=== PATIENT | female | born 1945 | race Caucasian/White ===

== ENCOUNTER → 2016-05-23 | Outpatient (CLI) | payer MEDICARE ==
--- NOTE | 2016-05-24 11:57 | MM ---
Reason for exam: screening (asymptomatic). Last mammogram was performed 1 year ago. History: Patient is postmenopausal. Family history of breast cancer in mother at age 70. Benign stereotactic core biopsy of the left breast, March 02, 2001. Benign excisional biopsy of the left breast, February 25, 1998. Physical Findings: A clinical breast exam by your physician is recommended on an annual basis and results should be correlated with mammographic findings. MG 3D Screening Mammo W/Cad Bilateral CC and MLO view(s) were taken. Prior study comparison: May 14, 2015, bilateral MG screening mammo w CAD. May 05, 2014, bilateral MG screening mammo w CAD. There are scattered fibroglandular densities. No significant changes when compared with prior studies. ASSESSMENT: Negative, BI-RAD 1 RECOMMENDATION: Routine screening mammogram of both breasts in 1 year.
== END | disposition home or self-care (01) ==
LOC: RADMAMWWP 09:03
PROVIDERS: ATTEND Family Medicine
DX: Z12.31 Encounter for screening mammogram for malignant neoplasm of breast (principal)
CPT/HCPCS: 77063; G0202

== ENCOUNTER 2017-04-11 11:51 | Observation (INO) | payer MEDICARE ==
[2017-04-11] MEDS ORDERED: SODIUM CHLORIDE 0.9% 500 ML IV STA (12:36)
--- NOTE | 2017-04-11 12:38 | ED ---
General Adult HPI - General Chief complaint: Syncope Stated complaint: syncope Time Seen by Provider: 04/11/17 11:55 Source: family, EMS, RN notes reviewed Mode of arrival: EMS Limitations: no limitations - History of Present Illness Initial comments: This is a 72-year-old female presents emergency Department with a past medical history significant for diabetes. Patient comes in today because while at the store she be came very sweaty and states she continued to be profusely diaphoretic until she was almost at the hospital via EMS. Patient states she became very lightheaded at this time thought she was given a passout. Patient denies any palpitations. Patient denies any chest pain. Patient denies any shortness of breath or difficulty breathing. Patient denies any pain whatsoever. Patient denies headache patient denies numbness weakness. Patient denies any visual disturbance. Patient denies any abdominal pain patient denies nausea vomiting or diarrhea. Patient states her sugar was 250 when she woke up this morning and 313 when the paramedics doctor. Patient denies any dysuria hematuria urinary freaky. Patient denies any back pain. Patient states currently she has no symptoms at this time. - Related Data Home Medications Medication Instructions Recorded Confirmed Ascorbic Acid [Vitamin C] 500 mg PO DAILY 04/11/17 04/11/17 Aspirin 81 mg PO DAILY 04/11/17 04/11/17 Multivitamins, Thera [Multivitamin 1 tab PO DAILY 04/11/17 04/11/17 (formulary)] [facility] Fatty Acids/Fish Oil [Fish 1 cap PO DAILY 04/11/17 04/11/17 Oil 1,000 mg Softgel] Super B Complex 1 tab PO DAILY 04/11/17 04/11/17 Ubidecarenone [Co Q-10] 100 mg PO DAILY 04/11/17 04/11/17 cloNIDine 0.1 MG/24HR PATCH 1 patch TRANSDERM TH 04/11/17 04/11/17 [Catapres-TTS] glipiZIDE [Glucotrol] 10 mg PO AC-BID 04/11/17 04/11/17 Allergies Allergy/AdvReac Type Severity Reaction Status Date / Time Penicillins Allergy Anaphylaxis Verified 04/11/17 12:16 Most DIABETIC medications Allergy Unknown Uncoded 04/11/17 12:16 Review of Systems ROS Statement: Those systems with pertinent positive or pertinent negative responses have been documented in the HPI. ROS Other: All systems not noted in ROS Statement are negative. Past Medical History Past Medical History: Diabetes Mellitus History of Any Multi-Drug Resistant Organisms: None Reported Past Surgical History: Hysterectomy, Tonsillectomy Additional Past Surgical History / Comment(s): mass removed from scalp Past Psychological History: No Psychological Hx Reported Smoking Status: Never smoker Past Alcohol Use History: None Reported Past Drug Use History: None Reported General Exam - General Exam Comments Initial Comments: GENERAL: Patient is well-developed and well-nourished. Patient is nontoxic and well- hydrated and is in mild distress. ENT: Neck is soft and supple. No significant lymphadenopathy is noted. Oropharynx is clear. Moist mucous membranes. Neck has full range of motion without eliciting any pain. EYES: The sclera were anicteric and conjunctiva were pink and moist. Extraocular movements were intact and pupils were equal round and reactive to light. Eyelids were unremarkable. PULMONARY: Unlabored respirations. Good breath sounds bilaterally. No audible rales rhonchi or wheezing was noted. CARDIOVASCULAR: There is a regular rate and rhythm without any murmurs gallops or rubs. ABDOMEN: Soft and nontender with normal bowel sounds. No palpable organomegaly was noted. There is no palpable pulsatile mass. SKIN: Skin is clear with no lesions or rashes and otherwise unremarkable. NEUROLOGIC: Patient is alert and oriented x3. Cranial nerves II through XII are grossly intact. Motor and sensory are also intact. Normal speech, volume and content. Symmetrical smile. MUSCULOSKELETAL: Normal extremities with adequate strength and full range of motion. No lower extremity swelling or edema. No calf tenderness. LYMPHATICS: No significant lymphadenopathy is noted PSYCHIATRIC: Normal psychiatric evaluation. Normal interpersonal interactions appears functionally intact in deals appropriately with others. No signs of depression. No signs of anxiety. Limitations: no limitations Course Vital Signs 04/11/17 04/11/17 04/11/17 11:53 12:45 12:50 Temperature 97.4 F L Pulse Rate 97 Pulse Rate [ 86 Sitting] Pulse Rate [ 83 Standing] Pulse Rate [ 82 Supine] Respiratory 20 18 18 Rate Blood Pressure 152/80 Blood Pressure 184/92 [Sitting] Blood Pressure 170/76 [Standing] Blood Pressure 161/79 [Supine] O2 Sat by Pulse 97 97 Oximetry 04/11/17 04/11/17 13:40 14:36 Temperature Pulse Rate 86 84 Pulse Rate [ Sitting] Pulse Rate [ Standing] Pulse Rate [ Supine] Respiratory 16 16 Rate Blood Pressure 171/78 Blood Pressure [Sitting] Blood Pressure [Standing] Blood Pressure [Supine] O2 Sat by Pulse 97 98 Oximetry Medical Decision Making - Medical Decision Making EKG shows a normal sinus rhythm at 79 bpm SC interval is 158 QRS is 94 QT interval 428 QTC is 490. Patient's EKG shows no ST segment elevation or depression or T wave abnormalities are noted. Chest x-ray shows no acute abnormality. I spoke with Dr. Kehinde Shah he agreed that the patient should be admitted because of the near syncopal episode. - Lab Data Result diagrams: 04/11/17 12:11 04/11/17 12:11 Lab Results 04/11/17 04/11/17 04/11/17 Range/Units 12:11 12:11 12:11 WBC 7.2 (3.8-10.6) k/uL RBC 4.72 (3.80-5.40) m/uL Hgb 14.7 (11.4-16.0) gm/dL Hct 43.0 (34.0-46.0) % MCV 91.1 (80.0-100.0) fL MCH 31.1 (25.0-35.0) pg MCHC 34.1 (31.0-37.0) g/dL RDW 12.7 (11.5-15.5) % Plt Count 190 (150-450) k/uL Neutrophils % 70 % Lymphocytes % 19 % Monocytes % 5 % Eosinophils % 4 % Basophils % 1 % Neutrophils # 5.1 (1.3-7.7) k/uL Lymphocytes # 1.4 (1.0-4.8) k/uL Monocytes # 0.3 (0-1.0) k/uL Eosinophils # 0.3 (0-0.7) k/uL Basophils # 0.1 (0-0.2) k/uL PT (9.0-12.0) sec INR (<1.2) APTT (22.0-30.0) sec Sodium 138 (137-145) mmol/L Potassium 3.9 (3.5-5.1) mmol/L Chloride 104 (98-107) mmol/L Carbon Dioxide 23 (22-30) mmol/L Anion Gap 11 mmol/L BUN 19 H (7-17) mg/dL Creatinine 0.69 (0.52-1.04) mg/dL Est GFR (MDRD) Af Amer >60 (>60 ml/min/1.73 sqM) Est GFR (MDRD) Non-Af >60 (>60 ml/min/1.73 sqM) Glucose 263 H (74-99) mg/dL Calcium 9.5 (8.4-10.2) mg/dL Magnesium 1.9 (1.6-2.3) mg/dL Total Bilirubin 0.8 (0.2-1.3) mg/dL AST 24 (14-36) U/L ALT 41 (9-52) U/L Alkaline Phosphatase 104 (38-126) U/L Total Creatine Kinase 67 (30-135) U/L CK-MB (CK-2) 1.3 (0.0-2.4) ng/mL CK-MB (CK-2) Rel Index 1.9 Troponin I <0.012 (0.000-0.034) ng/mL Total Protein 6.1 L (6.3-8.2) g/dL Albumin 3.6 (3.5-5.0) g/dL Urine Color Urine Appearance (Clear) Urine pH (5.0-8.0) Ur Specific [place] (1.001-1.035) Urine Protein (Negative) Urine Glucose (UA) (Negative) Urine Ketones (Negative) Urine Blood (Negative) Urine Nitrite (Negative) Urine Bilirubin (Negative) Urine Urobilinogen (<2.0) mg/dL Ur Leukocyte Esterase (Negative) Urine WBC (0-5) /hpf Ur Squamous Epith Cells (0-4) /hpf Hyaline Casts (0-2) /lpf Urine Mucus (None) /hpf 04/11/17 04/11/17 Range/Units 12:11 13:05 WBC (3.8-10.6) k/uL RBC (3.80-5.40) m/uL Hgb (11.4-16.0) gm/dL Hct (34.0-46.0) % MCV (80.0-100.0) fL MCH (25.0-35.0) pg MCHC (31.0-37.0) g/dL RDW (11.5-15.5) % Plt Count (150-450) k/uL Neutrophils % % Lymphocytes % % Monocytes % % Eosinophils % % Basophils % % Neutrophils # (1.3-7.7) k/uL Lymphocytes # (1.0-4.8) k/uL Monocytes # (0-1.0) k/uL Eosinophils # (0-0.7) k/uL Basophils # (0-0.2) k/uL PT 10.0 (9.0-12.0) sec INR 1.0 (<1.2) APTT 20.6 L (22.0-30.0) sec Sodium (137-145) mmol/L Potassium (3.5-5.1) mmol/L Chloride (98-107) mmol/L Carbon Dioxide (22-30) mmol/L Anion Gap mmol/L BUN (7-17) mg/dL Creatinine (0.52-1.04) mg/dL Est GFR (MDRD) Af Amer (>60 ml/min/1.73 sqM) Est GFR (MDRD) Non-Af (>60 ml/min/1.73 sqM) Glucose (74-99) mg/dL Calcium (8.4-10.2) mg/dL Magnesium (1.6-2.3) mg/dL Total Bilirubin (0.2-1.3) mg/dL AST (14-36) U/L ALT (9-52) U/L Alkaline Phosphatase (38-126) U/L Total Creatine Kinase (30-135) U/L CK-MB (CK-2) (0.0-2.4) ng/mL CK-MB (CK-2) Rel Index Troponin I (0.000-0.034) ng/mL Total Protein (6.3-8.2) g/dL Albumin (3.5-5.0) g/dL Urine Color Yellow Urine Appearance Clear (Clear) Urine pH 5.0 (5.0-8.0) Ur Specific [place] 1.020 (1.001-1.035) Urine Protein Negative (Negative) Urine Glucose (UA) 4+ H (Negative) Urine Ketones 1+ H (Negative) Urine Blood Negative (Negative) Urine Nitrite Negative (Negative) Urine Bilirubin Negative (Negative) Urine Urobilinogen <2.0 (<2.0) mg/dL Ur Leukocyte Esterase Trace H (Negative) Urine WBC 2 (0-5) /hpf Ur Squamous Epith Cells 1 (0-4) /hpf Hyaline Casts 3 H (0-2) /lpf Urine Mucus Occasional H (None) /hpf Disposition Clinical Impression: Syncope, near Disposition: ADMITTED IP TO THIS HOSP Referrals: Kehinde Shah MD [Primary Care Provider] - 1-2 days Time of Disposition: 14:51
[2017-04-11 13:02] LABS: ALT 41 U/L (9-52); AST 24 U/L (14-36); Albumin 3.6 g/dL (3.5-5.0); Alkaline Phosphatase 104 U/L (38-126); Anion Gap 11 mmol/L; Blood Urea Nitrogen 19 mg/dL (7-17); Calcium 9.5 mg/dL (8.4-10.2); Carbon Dioxide 23 mmol/L (22-30); Chloride 104 mmol/L (98-107); Glucose 263 mg/dL (74-99); Magnesium 1.9 mg/dL (1.6-2.3); Sodium 138 mmol/L (137-145); Total Bilirubin 0.8 mg/dL (0.2-1.3); Total Protein 6.1 g/dL (6.3-8.2)
[2017-04-11 13:04] LABS: Potassium 3.9 mmol/L (3.5-5.1)
[2017-04-11 13:06] LABS: Basophils # (A) 0.1 k/uL (0-0.2); Basophils % (A) 1 %; Eosinophils # (A) 0.3 k/uL (0-0.7); Eosinophils % (A) 4 %; HGB 14.7 gm/dL (11.4-16.0); Lymphocytes # (A) 1.4 k/uL (1.0-4.8); Lymphocytes % (A) 19 %; MCH 31.1 pg (25.0-35.0); MCHC 34.1 g/dL (31.0-37.0); MCV 91.1 fL (80.0-100.0); Mean Platelet Volume 7.5; Monocytes # (A) 0.3 k/uL (0-1.0); Monocytes % (A) 5 %; Neutrophils # (A) 5.1 k/uL (1.3-7.7); Neutrophils % (A) 70 %; Platelet Count 190 k/uL (150-450); RBC 4.72 m/uL (3.80-5.40); RDW 12.7 % (11.5-15.5); WBC 7.2 k/uL (3.8-10.6)
[2017-04-11 13:15] LABS: Creatine Kinase 67 U/L (30-135)
[2017-04-11 13:17] LABS: Partial Thromboplastin Time 20.6 sec (22.0-30.0)
[2017-04-11 13:28] LABS: Creatine Kinase MB 1.3 ng/mL (0.0-2.4); Troponin I <0.012 ng/mL (0.000-0.034)
--- NOTE | 2017-04-11 13:41 | XR ---
EXAMINATION TYPE: XR chest 2V DATE OF EXAM: 04/11/2017 COMPARISON: 04/13/2014 HISTORY: Shortness of breath TECHNIQUE: Frontal and lateral views of the chest are obtained. FINDINGS: Scattered senescent parenchymal changes noted. Hyperinflation compatible with COPD. No evidence for infiltrate. No evidence for atelectasis. Heart size is stable. Mediastinal structures are stable and grossly unremarkable. No evidence for hilar prominence. Degenerative changes dorsal spine. IMPRESSION: 1. No evidence for acute pulmonary disease.
[2017-04-11 13:52] LABS: Appearance,Urine Clear (Clear); Bilirubin,Urine Negative (Negative); Blood,Urine Negative (Negative); Color,Urine Yellow; Glucose,Urine (UA) 4+ (Negative); Hyaline Casts,Urine 3 /lpf (0-2); Ketones,Urine 1+ (Negative); Leukocyte Esterase,Urine Trace (Negative); Mucus,Urine Occasional /hpf; Nitrite,Urine Negative (Negative); Protein,Urine Negative (Negative); Squamous Epithelial Cell,Urine 1 /hpf (0-4); Urobilinogen,Urine <2.0 mg/dL (<2.0); WBC,Urine 2 /hpf (0-5)
[2017-04-11] MEDS ORDERED: NITROGLYCERIN SL TABS 0.4 MG TAB SUBLINGUAL PRN (14:51)
[2017-04-11 19:12] LABS: Creatine Kinase 70 U/L (30-135)
[2017-04-11 19:25] LABS: Creatine Kinase MB 1.1 ng/mL (0.0-2.4); Troponin I <0.012 ng/mL (0.000-0.034)
[2017-04-11 21:19] LABS: Glucose,Whole Blood 293 mg/dL (75-99)
[2017-04-11] MEDS: INSULIN ASPART 100 UNIT/ML 1 ML 10 ML VIAL SQ SCH (22:41)
[2017-04-11] MEDS: glipiZIDE 10 MG TAB PO SCH (22:52)
[2017-04-12 01:16] LABS: Creatine Kinase 65 U/L (30-135)
[2017-04-12 01:46] LABS: Troponin I <0.012 ng/mL (0.000-0.034)
[2017-04-12 06:26] LABS: Glucose,Whole Blood 217 mg/dL (75-99)
[2017-04-12] MEDS: glipiZIDE 10 MG TAB PO SCH ×2 (06:38→17:13)
[2017-04-12] MEDS: INSULIN ASPART 100 UNIT/ML 1 ML 10 ML VIAL SQ SCH ×4 (06:38→21:14)
[2017-04-12] MEDS: ASCORBIC ACID 500 MG TAB PO SCH (08:18)
[2017-04-12] MEDS ORDERED: ASPIRIN 325 MG TAB PO SCH (09:00)
--- NOTE | 2017-04-12 09:57 | P.CRDCN ---
History of Present Illness Consult date: 04/12/17 Requesting physician: Kehinde Shah Consult reason: sycope Chief complaint: Syncope History of present illness: THis is a pleasant 72-year-old female with history of hypertension, diabetes, who was feeling quite well overall. She states that she had a busy morning yesterday, she went to a chiropractor appointment, stopped in at [employer] , then she went to [facility]. She states that she was standing in line for quite some time waiting for the customer ahead of her to pay when she became extremely diaphoretic, she states that she was not dizzy or lightheaded, just was not feeling well, she felt extremely hot and took her jacket off. Once it was her return to pay she states that she felt as though she was going to pass out so she sat down in the baggage area, and laid her head forward. There is apparently a nurse standing behind her in line that noted that she did his consciousness for a brief period of time. EMS was called, and patient was brought to the emergency room for further evaluation. While in the EMS, patient states that she was unable to get the words out that she wanted to say, when she finally did get her words out they were slurred. According to the patient, she did have a protein shake prior to starting her day. Blood pressure while eating the EMS 151/78 with a heart rate in the 80s, respirations 16, 98% room air O2 sat. Blood sugar 312. EKG on arrival showed a normal sinus rhythm with no acute changes. Subsequent EKG performed this morning showed a normal sinus rhythm with occasional PVC. Chest x-ray did not reveal any evidence for acute pulmonary disease. Blood pressure on arrival 152/80 with a heart rate in the 90s, 97% on room air. CBC normal. Sodium 138, potassium 3.9, BUN 19, creatinine 0.6. Troponins negative 3. Magnesium 1.9. The time of my examination this morning, patient feels well, no dizziness or lightheadedness, no diaphoresis, no chest pain palpitations or shortness of breath. Past Medical History Past Medical History: Diabetes Mellitus, Hypertension Additional Past Medical History / Comment(s): neuropathy History of Any Multi-Drug Resistant Organisms: None Reported Past Surgical History: Hysterectomy, Tonsillectomy Additional Past Surgical History / Comment(s): mass removed from scalp, vein stripping Past Anesthesia/Blood Transfusion Reactions: No Reported Reaction Past Psychological History: Anxiety Smoking Status: Never smoker Past Alcohol Use History: None Reported Past Drug Use History: None Reported - Past Family History Father Family Medical History: Coronary Artery Disease (CAD), Diabetes Mellitus Mother Family Medical History: Cancer Medications and Allergies Home Medications Medication Instructions Recorded Confirmed Type Ascorbic Acid [Vitamin C] 500 mg PO DAILY 04/11/17 04/11/17 History Aspirin 81 mg PO DAILY 04/11/17 04/11/17 History Multivitamins, Thera [Multivitamin 1 tab PO DAILY 04/11/17 04/11/17 History (formulary)] [place]-3 Fatty Acids/Fish Oil [Fish 1 cap PO DAILY 04/11/17 04/11/17 History Oil 1,000 mg Softgel] Super B Complex 1 tab PO DAILY 04/11/17 04/11/17 History Ubidecarenone [Co Q-10] 100 mg PO DAILY 04/11/17 04/11/17 History cloNIDine 0.1 MG/24HR PATCH 1 patch TRANSDERM TH 04/11/17 04/11/17 History [Catapres-TTS] glipiZIDE [Glucotrol] 10 mg PO AC-BID 04/11/17 04/11/17 History Allergies Allergy/AdvReac Type Severity Reaction Status Date / Time Penicillins Allergy Anaphylaxis Verified 04/11/17 12:16 Most DIABETIC medications Allergy Unknown Uncoded 04/11/17 12:16 Physical Exam Vitals: Vital Signs Temp Pulse Pulse Pulse Pulse Resp BP 04/12/17 04:00 97.8 F 83 18 04/11/17 23:42 97.3 F L 90 18 04/11/17 23:30 04/11/17 23:00 04/11/17 21:38 97.8 F 87 18 04/11/17 20:07 04/11/17 18:35 97.8 F 81 16 149/72 04/11/17 17:00 78 04/11/17 15:32 98.2 F 89 18 146/80 04/11/17 14:36 84 16 04/11/17 13:40 86 16 171/78 04/11/17 12:50 18 04/11/17 12:45 86 83 82 18 04/11/17 11:53 97.4 F L 97 20 152/80 BP BP BP Pulse Ox 04/12/17 04:00 145/95 97 04/11/17 23:42 154/84 98 04/11/17 23:30 161/91 04/11/17 23:00 195/99 04/11/17 21:38 159/89 98 04/11/17 20:07 99 04/11/17 18:35 99 04/11/17 17:00 99 04/11/17 15:32 98 04/11/17 14:36 98 04/11/17 13:40 97 04/11/17 12:50 04/11/17 12:45 184/92 170/76 161/79 97 04/11/17 11:53 97 Intake and Output 04/11/17 04/12/17 04/12/17 22:59 06:59 14:59 Intake Total 160 160 240 Output Total 1 Balance 159 160 240 Intake: IV 160 160 Sodium Chloride 0.9% 1000 160 mL @ 20 mL/hr IV CONTINOUS Sodium Chloride 0.9% 500 160 ml @ 999 mls/hr IV .Q31M STA Rx#:[id number] Oral 240 Output: Urine 1 Other: Weight 86.6 kg PHYSICAL EXAMINATION: HEENT: Head is atraumatic, normocephalic. Pupils equal, round. Neck is supple. There is no elevated jugular venous pressure. HEART EXAMINATION: Heart S1, S2 normal. No murmur or gallop heard. CHEST EXAMINATION: Lungs are clear to auscultation and precussion. No chest wall tenderness is noted on palpation or with deep breathing. ABDOMEN: Soft, nontender. Bowel sounds are heard. No organomegaly noted. EXTREMITIES: 2+ peripheral pulses with no evidence of peripheral edema and no calf tenderness noted. NEUROLOGIC patient is awake, alert and oriented -3. . Results 04/11/17 12:11 04/11/17 12:11 Cardiac Enzymes 04/11/17 04/11/17 04/11/17 Range/Units 12:11 12:11 18:11 AST 24 (14-36) U/L CK-MB (CK-2) 1.3 1.1 (0.0-2.4) ng/mL Troponin I <0.012 <0.012 (0.000-0.034) ng/mL 04/12/17 Range/Units 00:24 AST (14-36) U/L CK-MB (CK-2) 1.0 (0.0-2.4) ng/mL Troponin I <0.012 (0.000-0.034) ng/mL Coagulation 04/11/17 Range/Units 12:11 PT 10.0 (9.0-12.0) sec APTT 20.6 L (22.0-30.0) sec CBC 04/11/17 Range/Units 12:11 WBC 7.2 (3.8-10.6) k/uL RBC 4.72 (3.80-5.40) m/uL Hgb 14.7 (11.4-16.0) gm/dL Hct 43.0 (34.0-46.0) % Plt Count 190 (150-450) k/uL Comprehensive Metabolic Panel 04/11/17 Range/Units 12:11 Sodium 138 (137-145) mmol/L Potassium 3.9 (3.5-5.1) mmol/L Chloride 104 (98-107) mmol/L Carbon Dioxide 23 (22-30) mmol/L BUN 19 H (7-17) mg/dL Creatinine 0.69 (0.52-1.04) mg/dL Glucose 263 H (74-99) mg/dL Calcium 9.5 (8.4-10.2) mg/dL AST 24 (14-36) U/L ALT 41 (9-52) U/L Alkaline Phosphatase 104 (38-126) U/L Total Protein 6.1 L (6.3-8.2) g/dL Albumin 3.6 (3.5-5.0) g/dL Current Medications Generic Name Dose Route Start Last Admin Trade Name Freq PRN Reason Stop Dose Admin Ascorbic Acid 500 mg 04/12/17 09:00 04/12/17 08:18 Vitamin C PO 500 mg DAILY YAMILE Administration Aspirin 325 mg 04/12/17 09:00 04/12/17 08:18 Aspirin PO 325 mg DAILY YAMILE Administration Clonidine HCl 1 patch 04/13/17 09:00 Catapres-Tts 0.1mg Patch TRANSDERM TH [facility] Glipizide 10 mg 04/11/17 21:45 04/12/17 06:38 Glucotrol PO 10 mg AC-BID YAMILE Administration Insulin Aspart 0 unit 04/11/17 21:43 04/12/17 06:38 Novolog SQ 3 unit ACHS [facility] Administration Protocol Multivitamins 1 each 04/12/17 12:00 Theragran PO DAILY@1200 [facility] Nitroglycerin 0.4 mg 04/11/17 14:51 Nitrostat SUBLINGUAL Q5M PRN Chest Pain Intake and Output 04/11/17 04/12/17 04/12/17 22:59 06:59 14:59 Intake Total 160 160 240 Output Total 1 Balance 159 160 240 Intake: IV 160 160 Sodium Chloride 0.9% 1000 160 mL @ 20 mL/hr IV CONTINOUS Sodium Chloride 0.9% 500 160 ml @ 999 mls/hr IV .Q31M STA Rx#:[id number] Oral 240 Output: Urine 1 Other: Weight 86.6 kg 04/11/17 12:11 04/11/17 12:11 EKG Interpretations (text) EKG shows normal sinus rhythm with occasional PVC Assessment and Plan Plan: Assessment and plan #1 syncope, rule out cardiac causes. EKG shows normal sinus rhythm with occasional PVC. No tachycardia or bradycardia noted. #2 expressive aphasia with slurring of speech, symptoms resolved, rule out TIA #3 hypertension history, pressure this morning 144/90, pressure 195/99 last evening. #4 diabetes Plan We will obtain an echocardiogram with Doppler study. We will also check orthostatic heart rate and blood pressure every shift. Continue to monitor for any tachycardia or bradycardia arrhythmias. Check a fasting lipid profile. Consider the addition of an DELANEY inhibitor for blood pressure with history of diabetes . Further recommendations to follow. DNP note has been reviewed, I agree with a documented findings and plan of care. Patient was seen and examined.
--- NOTE | 2017-04-12 10:31 | P.PN ---
Progress Note - Text This is an addendum to the dictated cardiology consultation patient has a history of hypertension, diabetes mellitus ,she was started recently on clonidine patch and yesterday while standing for a prolonged period of time she had symptoms consistent with vasodepressor syncope. Subsequently in the EMS when her blood pressure was elevated she had a brief episode of slurred speech , she's feeling well at this time, she is active physically without any limitations or symptoms. At home her blood pressure has been in the 140 mmHg. She has no prior history of cardiac disease and no recent cardiac workup. Her physical examination shows no evidence of fluid overload she is in sinus mechanism. Her presentation is consistent with vasodepressor syncope that could have been exacerbated at the clonidine patch. Because of her history of diabetes I will stop the clonidine patch and add to her regimen lisinopril 5 mg twice a day as well as a statin because of her history of diabetes. We will obtain an echocardiogram with Doppler to evaluate her left ventricle systolic function. Her activity level will be increased, she will follow her blood pressure after discharge and depending on the trend further adjustments will be made. She may require a neurological evaluation for the transient speech disturbance. Thank you for this consult we will follow with you.
[2017-04-12] MEDS: LISINOPRIL 5 MG TAB PO SCH ×2 (11:24→21:14)
[2017-04-12] MEDS: ATORVASTATIN 40 MG TAB PO SCH (11:24)
[2017-04-12 12:04] LABS: Glucose,Whole Blood 252 mg/dL (75-99)
--- NOTE | 2017-04-12 12:06 | ECHOF ---
Referral Reason:syncope MEASUREMENTS -------- HEIGHT: 175.3 cm WEIGHT: 86.2 kg BP: 145/96 RVIDd: 3.5 cm (< 3.3) IVSd: 1.1 cm (0.6 - 1.1) LVIDd: 4.7 cm (3.9 - 5.3) LVPWd: 1.1 cm (0.6 - 1.1) IVSs: 1.4 cm LVIDs: 3.4 cm LVPWs: 1.1 cm LAESV Index (A-L): 25.37 ml/m Ao Diam: 3.1 cm (2.0 - 3.7) AV Cusp: 1.7 cm (1.5 - 2.6) LA Diam: 3.6 cm (2.7 - 3.8) MV EXCURSION: 17.007 mm (> 18.000) MV EF SLOPE: 79 mm/s (70 - 150) EPSS: 0.5 cm MV E Jaren: 0.39 m/s MV DecT: 209 ms MV A Jaren: 0.71 m/s MV E/A Ratio: 0.55 RAP: 5.00 mmHg RVSP: 10.41 mmHg FINDINGS -------- Sinus rhythm. This was a technically good study. The left ventricular size is normal. Left ventricular wall thickness is normal. Overall left vent ricular systolic function is normal with, an EF between 55 - 60 %. The right ventricle is normal in size. Normal LA size by volume 22+/-6 ml/m2. The right atrial size is normal. The aortic valve is trileaflet, and appears structurally normal. No aortic stenosis or regurgitation. Mild mitral regurgitation is present. [id number] tricuspid regurgitation present. There is no evidence of pulmonary hypertension. The right ventricular systolic pressure, as measured by Doppler, is 10.41mmHg. Trace/mild (physiologic) pulmonic regurgitation. The aortic root size is normal. Echo free space represents a pericardial fat pad. CONCLUSIONS -------- 1. The left ventricular size is normal. 2. Left ventricular wall thickness is normal. 3. Overall left ventricular systolic function is normal with, an EF between 55 - 60 %. 4. The aortic valve is trileaflet, and appears structurally normal. No aortic stenosis or regurgitati on. 5. Mild mitral regurgitation is present. 6. [id number] tricuspid regurgitation present. 7. There is no evidence of pulmonary hypertension. 8. The right ventricular systolic pressure, as measured by Doppler, is 10.41mmHg. 9. Trace/mild (physiologic) pulmonic regurgitation. 10. Echo free space represents a pericardial fat pad. HOME STAGING SPECIALIST: Erin Manley RDCS
[2017-04-12] MEDS: MULTIVITAMINS, THERA 1 EACH TAB PO SCH (12:14)
[2017-04-12 14:15] LABS: Hemoglobin A1C 10.1 % (4.0-6.0)
--- NOTE | 2017-04-12 15:16 | HP ---
HISTORY AND PHYSICAL CHIEF COMPLAINT: A 72-year-old white female with syncope. HISTORY OF PRESENT ILLNESS: A 72-year-old white female with history of diabetes, hypertension, unresponsive to outpatient medicine, as she states she is allergic to everything that has ever been given to her. Patient apparently went to a chiropractor, went to multiple stores, became extremely diaphoretic, not feeling well, possibly going to pass out. She was in the baggage area, laid her head down, brought to the hospital. She apparently may be have lost consciousness for a brief period of time. EMS came and did her workup. She had some slurred speech. Blood pressure is 150s/70s, heart rate in the 80s, respirations 16 to 18, O2 sat 98%. Sugars 312. Normal sinus rhythm. Came into the ER. Cardiology is evaluating her. Troponins have been negative on admission. PAST MEDICAL HISTORY: Diabetes mellitus, hypertension, drug resistant to multiple drugs due to possible allergic reaction, neuropathy. PAST SURGICAL HISTORY: Hysterectomy, tonsillectomy. PSYCH: History of anxiety. SOCIAL HISTORY: Never smoked. No alcohol. No illicit drugs. FAMILY HISTORY: Father with coronary artery disease, diabetes. Mother cancer. HOME MEDICATIONS: 1. Multivitamin. 2. Aspirin. 3. Vitamin C. 4. Clonidine 0.1 mg patch. 5. Glucotrol 10 mg b.i.d. ALLERGIES: PENICILLIN, MOST DIABETIC MEDICINES, MOST BLOOD PRESSURE MEDICINES. Temp is 98, respiratory rate is 16 to 18, blood pressure 140s to 150s to 170s/70s to 80s. Head is normocephalic, atraumatic. Pupils equal, round, react to light and accommodation. HEART: S1, S2. Abdomen is soft, nontender. No organomegaly. EXTREMITIES: No cyanosis, clubbing, or edema. NEUROLOGIC: Alert and orient x3. White count is 7.2, hemoglobin is 14.7, BUN is 17, creatinine 0.69. EKG sinus rhythm. ASSESSMENT: 1. Syncope, unclear etiology with Cardiology workup. 2. Aphasia, slurred speech, possible transient ischemic attack. 3. Hypertension, noncompliant. 4. Drug use with multiple medicines at home. 5. Diabetes, noncompliant. 6. Drug resistant to multiple medicines. Await Cardiology consult. Possible discharge home once they see her. MMODL / IJN: [id number] /
[2017-04-12 17:12] LABS: Glucose,Whole Blood 213 mg/dL (75-99)
[2017-04-12 21:12] LABS: Glucose,Whole Blood 180 mg/dL (75-99)
[2017-04-12] MEDS ORDERED: INSULIN ASPART 100 UNIT/ML 1 ML 10 ML VIAL SQ SCH (21:36)
[2017-04-13 06:18] LABS: Glucose,Whole Blood 223 mg/dL (75-99)
[2017-04-13 06:36] LABS: Anion Gap 8 mmol/L; Blood Urea Nitrogen 17 mg/dL (7-17); Calcium 9.2 mg/dL (8.4-10.2); Carbon Dioxide 27 mmol/L (22-30); Chloride 106 mmol/L (98-107); Glucose 253 mg/dL (74-99); Potassium 4.4 mmol/L (3.5-5.1); Sodium 141 mmol/L (137-145)
[2017-04-13] MEDS: INSULIN ASPART 100 UNIT/ML 1 ML 10 ML VIAL SQ SCH ×4 (07:02→21:50)
[2017-04-13] MEDS: glipiZIDE 10 MG TAB PO SCH ×2 (07:02→17:21)
[2017-04-13] MEDS ORDERED: cloNIDine 0.1 MG/24HR PATCH 1 PATCH PATCH TRANSDERM SCH (09:00)
[2017-04-13] MEDS ORDERED: ASPIRIN 81 MG PO SCH (09:00)
--- NOTE | 2017-04-13 09:10 | US ---
EXAMINATION TYPE: US carotid duplex BILAT DATE OF EXAM: 04/13/2017 COMPARISON: NONE CLINICAL HISTORY: 72-year-old female TIA, patient states syncope TECHNIQUE: Carotid duplex ultrasound examination. Indirect Doppler criteria was utilized. FINDINGS: No significant atherosclerotic changes seen on either side. EXAM MEASUREMENTS: RIGHT: Peak Systolic Velocity (PSV) cm/sec ----- Right CCA: 94.9 ----- Right ICA: 77.1 ----- Right ECA: 81.0 ICA/CCA ratio: 0.8 RIGHT: End Diastole cm/sec ----- Right CCA: 21.4 ----- Right ICA: 24.8 ----- Right ECA: 11.1 LEFT: Peak Systolic Velocity (PSV) cm/sec ----- Left CCA: 72.1 ----- Left ICA: 98.4 ----- Left ECA: 72.2 ICA/CCA ratio: 1.4 LEFT: End Diastole cm/sec ----- Left CCA: 14.9 ----- Left ICA: 29.3 ----- Left ECA: 8.9 VERTEBRALS (direction of flow): Right Vertebral: Antegrade Left Vertebral: Antegrade Rhythm: Normal IMPRESSION: No hemodynamically significant stenosis appreciated in either internal carotid artery. Criteria for Assigning % of Stenosis / Diameter reduction (Estimation based on the indirect measurements of the internal carotid artery velocities (ICA PSV). 1. Normal (no stenosis)=ICA PSV < 125 cm/s: ratio < 2.0: ICA EDV<40 cm/s. 2. Less than 50% stenosis=ICA PSV < 125 cm/s: ratio < 2.0: ICA EDV<40 cm/s. 3. 50 to 69% stenosis=ICA PSV of 125 to 230 cm/s: ration 2.0 ? 4.0: ICA EDV 40-100 cm/s. 4. Greater than 70% stenosis to near occlusion= ICA PSV > 230 cm/s: ratio > 4.0: ICA EDV > 100 cm/s. 5. Near occlusion= ICA PSV velocities may be low or undetectable: variable ratio and ICA EDV. 6. Total occlusion=unable to detect flow.
[2017-04-13] MEDS: LISINOPRIL 5 MG TAB PO SCH ×2 (09:20→21:50)
[2017-04-13] MEDS: ASCORBIC ACID 500 MG TAB PO SCH (09:20)
[2017-04-13] MEDS: ATORVASTATIN 40 MG TAB PO SCH (09:20)
[2017-04-13] MEDS: MULTIVITAMINS, THERA 1 EACH TAB PO SCH (09:20)
--- NOTE | 2017-04-13 10:04 | CT ---
EXAMINATION TYPE: CT brain wo con DATE OF EXAM: 04/13/2017 COMPARISON: NONE HISTORY: Near syncope CT DLP: 1054.[address] of the brain was performed. The ventricles, basal cisterns and sulci overlying the cerebral convexities demonstrate mild enlargem ent. There is no evidence for intracranial hemorrhage or sulcal effacement. There is decreased attenuation about the periventricular white matter and deep white matter of both c erebral hemispheres, compatible with chronic small vessel ischemia. Differential diagnosis does inclu de demyelination. No mass effects are seen.No midline shift. Osseous calvarium is intact. Calcification frontal soft tissues may reflect osteoma. If symptoms persist consider MRI. IMPRESSION: 1. Age related atrophic and chronic small vessel ischemic change without acute intracranial process s een at this time.
[2017-04-13 12:12] LABS: Glucose,Whole Blood 261 mg/dL (75-99)
--- NOTE | 2017-04-13 13:37 | P.PN ---
Subjective Progress Note Date: 04/13/17 Principal diagnosis: Syncope THis is a pleasant 72-year-old female with history of hypertension, diabetes, who was feeling quite well overall. She states that she had a busy morning yesterday, she went to a chiropractor appointment, stopped in at [employer] , then she went to [facility]. She states that she was standing in line for quite some time waiting for the customer ahead of her to pay when she became extremely diaphoretic, she states that she was not dizzy or lightheaded, just was not feeling well, she felt extremely hot and took her jacket off. Once it was her return to pay she states that she felt as though she was going to pass out so she sat down in the baggage area, and laid her head forward. There is apparently a nurse standing behind her in line that noted that she did his consciousness for a brief period of time. EMS was called, and patient was brought to the emergency room for further evaluation. While in the EMS, patient states that she was unable to get the words out that she wanted to say, when she finally did get her words out they were slurred. According to the patient, she did have a protein shake prior to starting her day. Blood pressure while eating the EMS 151/78 with a heart rate in the 80s, respirations 16, 98% room air O2 sat. Blood sugar 312. EKG on arrival showed a normal sinus rhythm with no acute changes. Subsequent EKG performed this morning showed a normal sinus rhythm with occasional PVC. Chest x-ray did not reveal any evidence for acute pulmonary disease. Blood pressure on arrival 152/80 with a heart rate in the 90s, 97% on room air. CBC normal. Sodium 138, potassium 3.9, BUN 19, creatinine 0.6. Troponins negative 3. Magnesium 1.9. The time of my examination this morning, patient feels well, no dizziness or lightheadedness, no diaphoresis, no chest pain palpitations or shortness of breath. 04/13/2017 Patient was seen and examined this morning, no episodes of dizziness or lightheadedness, no palpitations. No significant orthostatics were documented. There were no tachycardia or bradycardia arrhythmias noted on the monitor. Blood pressure this morning 138/78 with a heart rate in the 80s. Carotid Doppler study did not reveal any hemodynamically significant stenosis. CAT scan of the brain revealed age-related atrophic and chronic small vessel ischemic change without any acute cranial process. Objective - Vital Signs Vital signs: Vital Signs Temp 97.7 F 04/13/17 12:00 Pulse 82 04/13/17 12:00 Resp 18 04/13/17 12:00 BP 139/79 04/13/17 12:00 Pulse Ox 96 04/13/17 12:00 Intake & Output 04/12/17 04/13/17 04/13/17 18:59 06:59 18:59 Intake Total 600 360 240 Output Total 0 Balance 600 360 240 Weight 85.5 kg Intake: Oral 600 360 240 Output: Urine 0 Other: Voiding Method Toilet Toilet # Voids 2 2 # Bowel Movements 0 - Exam PHYSICAL EXAMINATION: HEENT: Head is atraumatic, normocephalic. Pupils equal, round. Neck is supple. There is no elevated jugular venous pressure. HEART EXAMINATION: Heart S1, S2 normal. No murmur or gallop heard. CHEST EXAMINATION: Lungs are clear to auscultation and precussion. No chest wall tenderness is noted on palpation or with deep breathing. ABDOMEN: Soft, nontender. Bowel sounds are heard. No organomegaly noted. EXTREMITIES: 2+ peripheral pulses with no evidence of peripheral edema and no calf tenderness noted. NEUROLOGIC patient is awake, alert and oriented -3. . - Labs CBC & Chem 7: 04/11/17 12:11 04/13/17 05:53 Labs: Abnormal Lab Results - Last 24 Hours (Table) 04/12/17 04/12/17 04/12/17 Range/Units 00:24 17:05 21:09 Glucose (74-99) mg/dL POC Glucose (mg/dL) 213 H 180 H (75-99) mg/dL Hemoglobin A1c 10.1 H (4.0-6.0) % 04/13/17 04/13/17 04/13/17 Range/Units 05:53 06:16 11:58 Glucose 253 H (74-99) mg/dL POC Glucose (mg/dL) 223 H 261 H (75-99) mg/dL Hemoglobin A1c (4.0-6.0) % Assessment and Plan Plan: Assessment and plan #1 syncope, rule out cardiac causes. EKG shows normal sinus rhythm with occasional PVC. No tachycardia or bradycardia noted. #2 expressive aphasia with slurring of speech, symptoms resolved, rule out TIA #3 hypertension history, pressure this morning 144/90, pressure 195/99 last evening. #4 diabetes Plan Echocardiogram with Doppler study was performed which revealed a normal left ventricular systolic function. Patient has no significant orthostasis. No arrhythmias noted on the monitor. Blood pressure is stable. From cardiology's perspective, patient may be able to be discharged home once cleared by the primary. We will make her a follow-up appointment to see Dr. Dwyer in the office in 2-3 weeks post discharge. We will continue the patient on Lipitor 40 mg daily, lisinopril 5 mg by mouth twice a day. DNP note has been reviewed, I agree with a documented findings and plan of care. Patient was seen and examined.
[2017-04-13 14:40] VITALS: BMI 27.8
[2017-04-13 17:14] LABS: Glucose,Whole Blood 173 mg/dL (75-99)
--- NOTE | 2017-04-13 17:23 | EEG ---
ELECTROENCEPHALOGRAM REPORT DATE OF SERVICE: 04/13/2017. REASON FOR TESTING: Altered mental status and transient ischemic attack. DESCRIPTION OF THE PROCEDURE: This EEG was performed using a 21 channel digital electroencephalograph, following international 10-20 system. DESCRIPTION OF THE RECORDING: From the beginning of the tracing, and with patient's eyes closed, the background rhythm was mostly consisting of 9 Hz alpha frequency in the posterior occipital leads. No obvious asymmetry is seen. Photic stimulation was performed with a minimal driving response seen. No pathological waves were elicited. Hyperventilation was not performed. The patient remains awake throughout the tracing. Occasional movement artifacts are seen. No epileptiform discharges were noticed. Her EKG lead showed a regular rate and rhythm. INTERPRETATION: This awake EEG can be considered within normal limits. There was no asymmetry seen. No epileptiform discharges were noticed. The absence of epileptiform discharges does not rule out the diagnosis of epilepsy, therefore clinical correlation is recommended. MMLE / MORRIS: [id number] /
--- NOTE | 2017-04-13 20:29 | CONS ---
CONSULTATION DATE OF CONSULTATION: 04/13/2017. CHIEF COMPLAINT: Transient ischemic attack. HISTORY OF PRESENT ILLNESS: Mrs. Levine is a pleasant 72-year-old, female who is being evaluated by the Neurology Service per the request of Dr. Kehinde Shah for a transient ischemic attack. The patient was brought into [facility] Emergency Room after she had an episode of dizziness and difficulty speaking. The patient states that she was shopping at [employer] and once she got to the valera register, she felt very dizzy and she was sweating profusely. EMS was called and the patient's blood pressure and Accu-Chek was high according to the patient but she does not recall the exact numbers. The patient remembers that she was having difficulty pronouncing the words that she wanted to say. By the time she arrived to the emergency room, her symptoms resolved. She denies any previous episodes similar to this. The patient does take aspirin 81 mg daily at home. A CT scan of the brain was done which showed no acute intracranial abnormalities. She did have generalized atrophy and small-vessel ischemic changes. Her carotid Doppler was reviewed and showed no hemodynamically significant stenosis. Her CBC and cardiac enzymes were normal. I did review her EEG from today which was also normal. Her comprehensive metabolic profile was normal except for hyperglycemia at 263. Her urinalysis showed 2 WBCs with trace leukocyte esterase. At the time of my evaluation, the patient is lying in her bed and appears to be in no acute distress. She denies any recurrence of any neurological symptoms since her admission. PAST MEDICAL HISTORY: Hypertension, diabetes, neuropathy, history of hysterectomy and tonsillectomy. SOCIAL HISTORY: She denies any tobacco or alcohol or drug use. FAMILY HISTORY: Positive for diabetes, cancer, and heart disease. HOME MEDICATIONS: Reviewed in the chart. ALLERGIES: PENICILLIN AND "MOST DIABETIC MEDICATIONS". REVIEW OF SYSTEMS: CONSTITUTIONAL: Negative. EYES: Negative. ENT: Negative. CARDIOVASCULAR: Negative. RESPIRATORY: Negative. NEUROLOGICAL: As mentioned above. GASTROINTESTINAL: Negative. GENITOURINARY: Negative. PSYCHIATRIC: Negative. MUSCULOSKELETAL: Negative. ENDOCRINE: Negative. DERMATOLOGICAL: Negative. PHYSICAL EXAM: Vital signs show a temperature of 97.7, pulse 82, respiration 18, blood pressure 139/79. GENERAL APPEARANCE: The patient is a well-developed, elderly female, who appears to be in no acute distress. HEENT: Normocephalic, atraumatic, no facial asymmetry is seen. NECK: Supple with no masses felt. CARDIOVASCULAR: Regular rate and rhythm. ABDOMEN: Nontender nondistended. Extremities showed no edema or clubbing. Neurological exam: The patient is alert, aware and oriented x3. Speech and language are normal. Strength is full in all 4 extremities. Sensory exam was normal to light touch in all 4 extremities. No tremors or seizure-like activity is seen. No facial asymmetry is noticed on cranial nerve testing. IMPRESSION: 1. Transient ischemic attack. 2. Expressive aphasia, resolved. 3. Hypertension. 4. Diabetes. RECOMMENDATION: The patient does appear to have suffered a transient ischemic attack with a transient episode of expressive aphasia and dizziness. Her CT scan of the brain and carotid Dopplers were reviewed and they showed no significant abnormalities. I will discontinue her aspirin and start her on Plavix 75 mg daily. I will order a fasting lipid panel and serum homocystine level. Her EEG was reviewed and was normal. Continue IV hydration as tolerated. Continue neuro checks. I will continue to follow with you. Further recommendations to follow. Thank you, Dr. Shah, for allowing me to participate in the care of your patient. If you have any questions, please feel free to contact me. MMODL / IJN: [id number] /
[2017-04-13 20:40] LABS: Glucose,Whole Blood 269 mg/dL (75-99)
[2017-04-13] MEDS: INSULIN NPH/REG INSULIN 70/30 300 UNIT/3 ML VIAL SQ SCH (21:50)
--- NOTE | 2017-04-13 22:52 | PN ---
PROGRESS NOTE SUBJECTIVE: [id number] white female who has had negative carotid, negative echo. Waiting for Neurology to clear her for discharge. Vital signs are stable. Blood pressure is 140s over 70s. Sugars in mid 200s. CARDIOVASCULAR: S1, S2. LUNGS: Clear. GI: Soft. HEMATOLOGY: Negative Homans. ASSESSMENT: 1. Near-syncope. 2. Hypertension acceleration. 3. Diabetes mellitus, uncontrolled. Start Humulin 70/30 ten units b.i.d. Continue lisinopril 5 mg b.i.d. Await neurology clearance. MMODL / IJN: [id number] /
[2017-04-14 05:48] LABS: Glucose,Whole Blood 190 mg/dL (75-99)
[2017-04-14] MEDS: glipiZIDE 10 MG TAB PO SCH (06:42)
[2017-04-14] MEDS: INSULIN ASPART 100 UNIT/ML 1 ML 10 ML VIAL SQ SCH ×2 (06:43→11:59)
[2017-04-14 06:45] LABS: Cholesterol 127 mg/dL (<200); HDL Cholesterol 31 mg/dL (40-60); LDL Cholesterol,Calculated 58 mg/dL (0-99); Triglycerides 192 mg/dL (<150)
[2017-04-14] MEDS: ATORVASTATIN 40 MG TAB PO SCH (08:36)
[2017-04-14] MEDS: ASCORBIC ACID 500 MG TAB PO SCH (08:36)
[2017-04-14] MEDS: MULTIVITAMINS, THERA 1 EACH TAB PO SCH (08:36)
[2017-04-14] MEDS: LISINOPRIL 5 MG TAB PO SCH (08:36)
[2017-04-14] MEDS: INSULIN NPH/REG INSULIN 70/30 300 UNIT/3 ML VIAL SQ SCH (08:36)
[2017-04-14 08:40] VITALS: RESP 18
[2017-04-14] MEDS ORDERED: CLOPIDOGREL 75 MG TAB PO SCH (09:00)
[2017-04-14 11:37] VITALS: BP 140/70; PULSE 84; TEMP 97.8
[2017-04-14 12:42] LABS: Glucose,Whole Blood 228 mg/dL (75-99)
--- NOTE | 2017-04-14 15:09 | DS ---
DISCHARGE SUMMARY DISCHARGE DIAGNOSES: 1. Hypertension acceleration. 2. Uncontrolled diabetes mellitus. 3. Transient ischemic attack. 4. Syncope. CONDITION: Stable. PROGNOSIS: Guarded. Ambulate as tolerated. HOME MEDICATIONS WILL INCLUDE: 1. Glucotrol 10 mg b.i.d. 2. Lipitor 40 mg daily. 3. Zestril 5 mg b.i.d. 4. Plavix 75 mg daily. 5. Humulin 70/30 ten units b.i.d. CONDITION: Stable. PROGNOSIS: Guarded. Ambulate as tolerated. HOSPITAL COURSE: A 72-year-old white female admitted with syncope and TIA, was started on Plavix 75 mg daily by neurologist. Cardiology started Zestril 5 mg b.i.d. for hypertension. Insulin was given 10 units b.i.d. Patient is stabilized from medical standpoint. Cleared by Neurology on discharge. She will follow up with Dr. Shah and in 1 to 2 days. MMLE / MADYN: [id number] /
== END 2017-04-14 15:53 | disposition home or self-care (01) ==
LOC: EC 11:51 → 6SEL 14:52 → INTOOBSV 14:52 → 6SEL 18:21
PROVIDERS: ADMIT Family Medicine; ATTEND Family Medicine
DX: I10 Essential (primary) hypertension (principal); R55 Syncope and collapse; G45.9 Transient cerebral ischemic attack, unspecified; E11.65 Type 2 diabetes mellitus with hyperglycemia; R47.01 Aphasia; R47.81 Slurred speech; R61 Generalized hyperhidrosis; E11.40 Type 2 diabetes mellitus with diabetic neuropathy, unspecified; F41.9 Anxiety disorder, unspecified; I49.3 Ventricular premature depolarization; Z91.19 Patient's noncompliance with other medical treatment and regimen; Z88.0 Allergy status to penicillin; Z88.8 Allergy status to other drugs, medicaments and biological substances; Z79.84 Long term (current) use of oral hypoglycemic drugs; Z79.82 Long term (current) use of aspirin; Z79.899 Other long term (current) drug therapy; Z82.49 Family history of ischemic heart disease and other diseases of the circulatory system
CPT/HCPCS: 99285; 96360 ×2; 36415; 94760 ×2; 95819; 93005; 93306; 80061; 80053; 80048; 82550 ×2; 82553 ×2; 83735; 84484 ×2; 85025; 85610; 85730; 81001; 83090; 83036; 71046; 93880; 70450; G0378 ×4

== ENCOUNTER 2017-05-06 14:14 | Inpatient (IN) | payer MEDICARE ==
[2017-05-06] MEDS ORDERED: SODIUM CHLORIDE 0.9% 500 ML IV STA (14:51)
[2017-05-06] MEDS ORDERED: ACETAMINOPHEN TAB 500 MG TAB PO STA (14:51)
--- NOTE | 2017-05-06 14:58 | ED ---
General Adult HPI - General Chief complaint: Fever Stated complaint: Back pain Time Seen by Provider: 05/06/17 14:27 Source: patient, family, RN notes reviewed, old records reviewed Mode of arrival: wheelchair Limitations: no limitations - History of Present Illness Initial comments: Chief complaint and history of present illness is a 72-year-old female here with her . The patient reports that yesterday she developed left sciatic distribution pain and then a fever today. - Related Data Home Medications Medication Instructions Recorded Confirmed glipiZIDE [Glucotrol] 10 mg PO AC-BID 04/11/17 05/06/17 Doxycycline Hyclate 100 mg PO BID 05/06/17 05/06/17 Lisinopril [Zestril] 10 mg PO BID 05/06/17 05/06/17 Tobramycin 0.3% Ophth Soln [Tobrex 2 drop RIGHT EYE Q2H 05/06/17 05/06/17 0.3% Ophth Soln] Vit C/E/Zn/Coppr/Lutein/Zeaxan 1 cap PO DAILY 05/06/17 05/06/17 [Preservision Areds 2 Softgel] Previous Rx's Medication Instructions Recorded Atorvastatin [Lipitor] 40 mg PO DAILY #30 tab 04/13/17 Clopidogrel [Plavix] 75 mg PO DAILY #30 tab 04/14/17 Insulin NPH/Reg Insulin 70/30 10 unit SQ BID vial 04/14/17 [humuLIN 70/30 VIAL] Allergies Allergy/AdvReac Type Severity Reaction Status Date / Time Penicillins Allergy Anaphylaxis Verified 05/06/17 14:33 Most DIABETIC medications Allergy Unknown Uncoded 05/06/17 14:24 Review of Systems ROS Statement: Those systems with pertinent positive or pertinent negative responses have been documented in the HPI. Review of systems. Patient denies any headache no stiff neck no sore throat. She been treated 2 times with medications including, doxycycline currently, for a stye in her right eye area. No chest pain or shortness of breath no cough. She has left sciatic area pain starting yesterday. Fever today. She has not taken any medications or fever or discomfort. No nausea no vomiting no diarrhea no neuro deficits. All systems are reviewed. Past medical problems ration did get a flu shot this year. She has had shingles in the past. She's also had a pneumonia shot. The patient had a TIA in the middle of March of last month. She has insulin-dependent diabetes mellitus, history of hypertension and peripheral neuropathy. Surgeries include total hysterectomy, tonsillectomy and several cysts removed from her back neck and scalp. All benign. Family history mother had breast cancer. Patient has ALLERGIES to penicillin. Nonsmoker nondrinker. ROS Other: All systems not noted in ROS Statement are negative. Past Medical History Past Medical History: CVA/TIA, Diabetes Mellitus, Hypertension Additional Past Medical History / Comment(s): neuropathy History of Any Multi-Drug Resistant Organisms: None Reported Past Surgical History: Hysterectomy, Tonsillectomy Additional Past Surgical History / Comment(s): mass removed from scalp, vein stripping Past Anesthesia/Blood Transfusion Reactions: No Reported Reaction Past Psychological History: Anxiety Smoking Status: Never smoker Past Alcohol Use History: None Reported Past Drug Use History: None Reported - Past Family History Father Family Medical History: Coronary Artery Disease (CAD), Diabetes Mellitus Mother Family Medical History: Cancer General Exam - General Exam Comments Initial Comments: General: The patient is awake and alert, complaining of left paralumbar pain radiating to the left buttock area. Acute onset one day ago. And fever today. Vital signs temp 101.0 pulse 120 respiratory rate 18 pulse ox 99% room air blood pressure 178/87 Eye: Pupils are equal, round and reactive to light, extra-ocular movements are intact ; there is normal conjunctiva bilaterally. No signs of icterus. Mild redness to the eyelid, right side on doxycycline. Ears, nose, mouth and throat: There are moist mucous membranes and no oral lesions. Neck: The neck is supple, there is no tenderness . No neck pain with neck flexion and extension. Cardiovascular: Tachycardic heart rate, no murmur. Respiratory: Lungs are clear to auscultation, respirations are non-labored, breath sounds are equal. No wheezes, stridor, rales, or rhonchi. Gastrointestinal: Soft, non-distended, non-tender abdomen without masses or organomegaly noted. There is no rebound or guarding present. No CVA tenderness. Bowel sounds are unremarkable. No nausea no vomiting no diarrhea. Back: Acute onset of spastic type pain to the left paralumbar region radiating to the left buttock area. No rash noted. Pain can be increased by twisting to the right or left. Musculoskeletal: Normal ROM, no tenderness, There is no pedal edema. There is no calf tenderness or swelling. History of peripheral neuropathy. Neurological: No complaints of any neuro deficits none noted. Skin: Skin is warm and dry and no rashes or lesions are noted. Early shingles discussed. Psychiatric: Cooperative, Limitations: no limitations Course Vital Signs 05/06/17 05/06/17 05/06/17 14:22 14:47 15:15 Temperature 101.0 F H Pulse Rate 120 H 132 H 111 H Respiratory 18 24 24 Rate Blood Pressure 178/87 153/72 125/66 O2 Sat by Pulse 99 97 96 Oximetry EKG Findings - EKG Comments: EKG Findings:: EKG was done and reviewed at 1457 showing sinus tachycardia rate 132 MO interval is 136 QRS 86 QT to 98 QTc 441[address] No acute ST elevation. Left axis deviation, nonspecific ST-T wave changes. Dr. Turner Medical Decision Making - Medical Decision Making Medical decision making; this is a 72-year-old female here with several complaints one of which is a recurrent stye in her right eye but also acute pain to her left buttock region. Increases with movement. Fever today of 101. No specific focus. Labs show white count 13,000 hemoglobin 15 hematocrit of 45. Potassium 3.7 with a BUN 13 creatinine 0.6 month GFR greater than 60. Glucose 259. Total bilirubin 1.4. Urine shows 4 red 26 whites there is some calcium oxalate moderate amount. Leuk esterase positive. Some bacteriuria also noted. Culture and sensitivity pending. Due to the fact the patient had flank pain fever chills elevated white count patient will receive Levaquin 750 IV piggyback for presumed pyelonephritis. CAT scan pending. Chest x-ray is done AP and lateral view and reviewed by radiologist his impression is; no acute cardiopulmonary process. As read by Dr. Jorge X-ray lumbosacral spine was done and reviewed radiologist his final impression is ;no acute fracture dislocation is seen in the lumbar spine. As read by Dr. Jorge CT of the abdomen was done without contrast because of left flank and abdominal pain. The radiologist's significant findings include kidneys and no significant abnormality is seen. There is no hydronephrosis. The ureters are nondilated. In the left hemipelvis posteriorly there are several calcifications identified which are felt to be phleboliths. No free air. Urinary bladder no significant abnormality is seen. Bowel no significant abnormality is seen. Appendix not seen. Impression no significant findings. As read by Dr. Jorge The patient is receiving Levaquin for results of left pyelonephritis. Patient be admitted to Dr. Shah. - Lab Data Result diagrams: 05/06/17 15:00 05/06/17 15:00 Lab Results 05/06/17 05/06/17 05/06/17 Range/Units 14:40 15:00 15:00 WBC 13.1 H (3.8-10.6) k/uL RBC 5.14 (3.80-5.40) m/uL Hgb 15.7 (11.4-16.0) gm/dL Hct 45.9 (34.0-46.0) % MCV 89.4 (80.0-100.0) fL MCH 30.6 (25.0-35.0) pg MCHC 34.2 (31.0-37.0) g/dL RDW 12.6 (11.5-15.5) % Plt Count 205 (150-450) k/uL Neutrophils % 83 % Lymphocytes % 10 % Monocytes % 5 % Eosinophils % 2 % Basophils % 0 % Neutrophils # 10.9 H (1.3-7.7) k/uL Lymphocytes # 1.3 (1.0-4.8) k/uL Monocytes # 0.6 (0-1.0) k/uL Eosinophils # 0.2 (0-0.7) k/uL Basophils # 0.0 (0-0.2) k/uL Sodium 138 (137-145) mmol/L Potassium 3.7 (3.5-5.1) mmol/L Chloride 104 (98-107) mmol/L Carbon Dioxide 22 (22-30) mmol/L Anion Gap 12 mmol/L BUN 13 (7-17) mg/dL Creatinine 0.61 (0.52-1.04) mg/dL Est GFR (MDRD) Af Amer >60 (>60 ml/min/1.73 sqM) Est GFR (MDRD) Non-Af >60 (>60 ml/min/1.73 sqM) Glucose 259 H (74-99) mg/dL Calcium 9.8 (8.4-10.2) mg/dL Total Bilirubin 1.4 H (0.2-1.3) mg/dL AST 16 (14-36) U/L ALT 28 (9-52) U/L Alkaline Phosphatase 118 (38-126) U/L Total Protein 6.7 (6.3-8.2) g/dL Albumin 3.9 (3.5-5.0) g/dL Urine Color Urine Appearance (Clear) Urine pH (5.0-8.0) Ur Specific [place] (1.001-1.035) Urine Protein (Negative) Urine Glucose (UA) (Negative) Urine Ketones (Negative) Urine Blood (Negative) Urine Nitrite (Negative) Urine Bilirubin (Negative) Urine Urobilinogen (<2.0) mg/dL Ur Leukocyte Esterase (Negative) Urine RBC (0-5) /hpf Urine WBC (0-5) /hpf Ur Squamous Epith Cells (0-4) /hpf Calcium Oxalate Crystal (None) /hpf Urine Bacteria (None) /hpf Hyaline Casts (0-2) /lpf Urine Mucus (None) /hpf Influenza Type A RNA Not Detected (Not Detectd) Influenza Type B (PCR) Not Detected (Not Detectd) 05/06/17 Range/Units 15:00 WBC (3.8-10.6) k/uL RBC (3.80-5.40) m/uL Hgb (11.4-16.0) gm/dL Hct (34.0-46.0) % MCV (80.0-100.0) fL MCH (25.0-35.0) pg MCHC (31.0-37.0) g/dL RDW (11.5-15.5) % Plt Count (150-450) k/uL Neutrophils % % Lymphocytes % % Monocytes % % Eosinophils % % Basophils % % Neutrophils # (1.3-7.7) k/uL Lymphocytes # (1.0-4.8) k/uL Monocytes # (0-1.0) k/uL Eosinophils # (0-0.7) k/uL Basophils # (0-0.2) k/uL Sodium (137-145) mmol/L Potassium (3.5-5.1) mmol/L Chloride (98-107) mmol/L Carbon Dioxide (22-30) mmol/L Anion Gap mmol/L BUN (7-17) mg/dL Creatinine (0.52-1.04) mg/dL Est GFR (MDRD) Af Amer (>60 ml/min/1.73 sqM) Est GFR (MDRD) Non-Af (>60 ml/min/1.73 sqM) Glucose (74-99) mg/dL Calcium (8.4-10.2) mg/dL Total Bilirubin (0.2-1.3) mg/dL AST (14-36) U/L ALT (9-52) U/L Alkaline Phosphatase (38-126) U/L Total Protein (6.3-8.2) g/dL Albumin (3.5-5.0) g/dL Urine Color Yellow Urine Appearance Cloudy H (Clear) Urine pH 5.0 (5.0-8.0) Ur Specific [place] 1.022 (1.001-1.035) Urine Protein 1+ H (Negative) Urine Glucose (UA) 3+ H (Negative) Urine Ketones 2+ H (Negative) Urine Blood Negative (Negative) Urine Nitrite Negative (Negative) Urine Bilirubin Negative (Negative) Urine Urobilinogen <2.0 (<2.0) mg/dL Ur Leukocyte Esterase Moderate H (Negative) Urine RBC 4 (0-5) /hpf Urine WBC 26 H (0-5) /hpf Ur Squamous Epith Cells 6 H (0-4) /hpf Calcium Oxalate Crystal Moderate H (None) /hpf Urine Bacteria Rare H (None) /hpf Hyaline Casts 1 (0-2) /lpf Urine Mucus Moderate H (None) /hpf Influenza Type A RNA (Not Detectd) Influenza Type B (PCR) (Not Detectd) Disposition Clinical Impression: Pyelonephritis Disposition: ADMITTED IP TO THIS [facility] Condition: Fair Referrals: Kehinde Shah MD [Primary Care Provider] - 1-2 days
[2017-05-06 15:22] LABS: Basophils % (A) 0 %; Eosinophils # (A) 0.2 k/uL (0-0.7); Eosinophils % (A) 2 %; HCT 45.9 % (34.0-46.0); HGB 15.7 gm/dL (11.4-16.0); Lymphocytes # (A) 1.3 k/uL (1.0-4.8); Lymphocytes % (A) 10 %; MCH 30.6 pg (25.0-35.0); MCHC 34.2 g/dL (31.0-37.0); MCV 89.4 fL (80.0-100.0); Mean Platelet Volume 7.1; Monocytes # (A) 0.6 k/uL (0-1.0); Monocytes % (A) 5 %; Neutrophils # (A) 10.9 k/uL (1.3-7.7); Neutrophils % (A) 83 %; Platelet Count 205 k/uL (150-450); RBC 5.14 m/uL (3.80-5.40); RDW 12.6 % (11.5-15.5); WBC 13.1 k/uL (3.8-10.6)
[2017-05-06 15:28] LABS: Appearance,Urine Cloudy (Clear); Bacteria,Urine Rare /hpf; Bilirubin,Urine Negative (Negative); Blood,Urine Negative (Negative); Calcium Oxalate Crystals,Urine Moderate /hpf; Color,Urine Yellow; Glucose,Urine (UA) 3+ (Negative); Hyaline Casts,Urine 1 /lpf (0-2); Leukocyte Esterase,Urine Moderate (Negative); Mucus,Urine Moderate /hpf; Nitrite,Urine Negative (Negative); Protein,Urine 1+ (Negative); RBC,Urine 4 /hpf (0-5); Specific Gravity,Urine 1.022 (1.001-1.035); Squamous Epithelial Cell,Urine 6 /hpf (0-4); Urobilinogen,Urine <2.0 mg/dL (<2.0); WBC,Urine 26 /hpf (0-5)
[2017-05-06 15:36] LABS: ALT 28 U/L (9-52); AST 16 U/L (14-36); Albumin 3.9 g/dL (3.5-5.0); Alkaline Phosphatase 118 U/L (38-126); Anion Gap 12 mmol/L; Blood Urea Nitrogen 13 mg/dL (7-17); Calcium 9.8 mg/dL (8.4-10.2); Carbon Dioxide 22 mmol/L (22-30); Chloride 104 mmol/L (98-107); Glucose 259 mg/dL (74-99); Potassium 3.7 mmol/L (3.5-5.1); Sodium 138 mmol/L (137-145); Total Bilirubin 1.4 mg/dL (0.2-1.3); Total Protein 6.7 g/dL (6.3-8.2)
--- NOTE | 2017-05-06 15:49 | XR ---
EXAMINATION TYPE: XR chest 2V DATE OF EXAM: 05/06/2017 COMPARISON: Femur 2017 HISTORY: Shortness of breath TECHNIQUE: Frontal and lateral views of the chest are obtained. FINDINGS: There is no focal air space opacity, pleural effusion, or pneumothorax seen. The cardiac silhouette size is within normal limits. The osseous structures are intact. IMPRESSION: No acute cardiopulmonary process.
[2017-05-06] MEDS ORDERED: LEVOFLOXACIN 750MG-D5W PMX 750 MG in DEXTROSE/WATER 1 150ML.BAG IVPB STA (15:50)
--- NOTE | 2017-05-06 15:50 | XR ---
EXAMINATION TYPE: XR lumbosacral spine min 4V DATE OF EXAM: 05/06/2017 CLINICAL HISTORY: Low back pain. TECHNIQUE: Frontal, lateral, and oblique images of the lumbar spine are obtained. COMPARISON: None FINDINGS: There are 5 lumbar type vertebral bodies identified. The lumbar spine shows satisfactory alignment without evidence of acute fracture or dislocation. Vertebral body heights and disk space he ights are within normal limits. The oblique images appear within normal limits. The overlying soft tissue appears unremarkable. IMPRESSION: No acute fracture or dislocation is seen in the lumbar spine.
[2017-05-06 15:51] LABS: Ketones,Urine 2+ (Negative)
[2017-05-06] MEDS ORDERED: HYDROmorphone 2 MG/ML 1 ML SYRINGE IVP STA (15:57)
[2017-05-06] MEDS ORDERED: METOCLOPRAMIDE 5 MG/ML 2 ML VIAL IVP STA (15:57)
--- NOTE | 2017-05-06 16:44 | CT ---
EXAMINATION TYPE: CT abdomen pelvis wo con DATE OF EXAM: 05/06/2017 COMPARISON: NONE HISTORY: Left sided flank and Abdominal pain CT DLP: 641.5 mGycm Automated exposure control for dose reduction was used. TECHNIQUE: Helical acquisition of images was performed from the lung bases through the pelvis. FINDINGS: LUNG BASES: No significant abnormality is appreciated. LIVER/GB: No significant abnormality is appreciated. PANCREAS: No significant abnormality is seen. SPLEEN: No significant abnormality is seen. ADRENALS: No significant abnormality is seen. KIDNEYS: No significant abnormality is seen. There is no hydronephrosis. The ureters are not dilated. In the left hemipelvis posteriorly there are several calcifications identified which are felt to be phleboliths. FREE AIR: No free air is visualized RETROPERITONEAL ADENOPATHY: None visualized REPRODUCTIVE ORGANS: No significant abnormality is seen URINARY BLADDER: No significant abnormality is seen. PELVIC ADENOPATHY: None visualized. OSSEOUS STRUCTURES: No significant abnormality is seen. BOWEL: No significant abnormality is seen. The appendix is not seen. IMPRESSION: NO SIGNIFICANT FINDINGS.
[2017-05-06] MEDS ORDERED: ONDANSETRON 4 MG/2 ML VIAL IVP PRN (16:51)
[2017-05-06] MEDS ORDERED: HYDROmorphone 0.5 MG/0.5 ML SYRINGE IVP PRN (16:51)
[2017-05-06] MEDS ORDERED: NALOXONE 0.4 MG/ML 1 ML VIAL IV PRN (16:51)
[2017-05-06 19:44] VITALS: BMI 27.8
[2017-05-06] MEDS: SODIUM CHLORIDE 0.9% 1,000 ML IV SCH (19:48)
[2017-05-06 20:19] LABS: Glucose,Whole Blood 278 mg/dL (75-99)
[2017-05-06] MEDS: TOBRAMYCIN 0.3% OPHTH DROPS 5 ML BTL RIGHT EYE SCH ×4 (20:27→23:33)
[2017-05-06] MEDS: glipiZIDE 5 MG TAB PO SCH (20:27)
[2017-05-06] MEDS: INSULIN NPH/REG INSULIN 70/30 300 UNIT/3 ML VIAL SQ SCH (20:27)
[2017-05-06] MEDS: DOXYCYCLINE 50 MG CAP PO SCH (20:28)
[2017-05-06] MEDS: LISINOPRIL 10 MG TAB PO SCH (20:28)
[2017-05-07] MEDS ORDERED: HYDROmorphone 2 MG TAB PO PRN (00:35)
[2017-05-07] MEDS: TOBRAMYCIN 0.3% OPHTH DROPS 5 ML BTL RIGHT EYE SCH ×11 (02:28→20:56)
[2017-05-07] MEDS: SODIUM CHLORIDE 0.9% 1,000 ML IV SCH ×2 (07:01→17:42)
[2017-05-07] MEDS: INSULIN NPH/REG INSULIN 70/30 300 UNIT/3 ML VIAL SQ SCH ×2 (07:49→20:51)
[2017-05-07] MEDS: glipiZIDE 5 MG TAB PO SCH ×2 (07:51→17:42)
[2017-05-07] MEDS: DOXYCYCLINE 50 MG CAP PO SCH ×2 (07:51→19:49)
[2017-05-07] MEDS: ACETAMINOPHEN TAB 325 MG TAB PO PRN (07:52)
[2017-05-07] MEDS: LISINOPRIL 10 MG TAB PO SCH ×2 (07:52→20:55)
[2017-05-07] MEDS: CLOPIDOGREL 75 MG TAB PO SCH (07:52)
[2017-05-07 07:58] LABS: Glucose,Whole Blood 189 mg/dL (75-99)
[2017-05-07] MEDS ORDERED: LEVOFLOXACIN 750MG-D5W PMX 750 MG in DEXTROSE/WATER 1 150ML.BAG IVPB SCH (09:00)
[2017-05-07 09:37] LABS: Glucose,Whole Blood 323 mg/dL (75-99)
[2017-05-07 11:32] LABS: Glucose,Whole Blood 300 mg/dL (75-99)
[2017-05-07] MEDS: INSULIN ASPART 100 UNIT/ML 1 ML 10 ML VIAL SQ SCH ×3 (12:56→20:51)
--- NOTE | 2017-05-07 15:27 | HP ---
HISTORY AND PHYSICAL Poonam Levine is a 72-year-old female who presented to the ED at [facility] with back pain. This was located more on the left than the right. Subsequently became central. She also had fever and chills and was feeling quite weak. She subsequently was seen in the ED and admitted for further evaluation. PAST MEDICAL HISTORY: Is positive for TIA, CVA, diabetes mellitus type 2, hypertension, history of neuropathy, history off mass removed from her scalp, vein stripping, history of anxiety. FAMILY HISTORY: Positive for breast cancer in her mother. SOCIAL HISTORY: Patient does not smoke. Does not drink alcohol. Is not exposed to any chemicals. She used to work for a [employer] company. ALLERGIC: To PENICILLIN. MEDICATIONS: Prior to admission were glipizide, PreserVision AREDS 2 soft gel, tobramycin eye drops, Zestril, insulin NPH 70/30, doxycycline, Plavix, and Lipitor. REVIEW OF SYSTEMS: Possible sty in the right eye. PHYSICAL EXAMINATION: Respiratory rate is 16, pulse rate 91, temperature 98.3, blood pressure 153/73, O2 saturation on room air is 96%. HEENT reveals erythema off the right upper eyelid. No jugular venous distention. Chest is clear. Cardiovascular system reveals an S1, S2. Abdomen is soft. There is no edema. There is some flank tenderness. White count is 13.1, hemoglobin of 15.7 with 10.9 thousand neutrophils. Glucose is 239. Bilirubin is 1.4, AST is 16, ALT is 28, alkaline phosphatase 118. UA shows moderate leukocyte esterase with moderate calcium oxalate crystals. There is 1+ protein, 3+ glucose, 2+ ketones and 26 WBCs. IMPRESSION: At this time, 1. Acute pyelonephritis. 2. Uncontrolled diabetes mellitus. 3. History of transient ischemic attack. 4. Stye on the right eye. At this point in time, keep her on GI and DVT prophylaxis. Keep her blood sugar is under control. Keep her on Levaquin and have her seen by ID. Depending on how she does, further changes to her care will need to be made. MMODL / IJN: [id number] /
[2017-05-07 17:11] LABS: Glucose,Whole Blood 188 mg/dL (75-99)
[2017-05-07] MEDS ORDERED: INSULIN ASPART 100 UNIT/ML 1 ML 10 ML VIAL SQ SCH (17:30)
[2017-05-07 18:38] LABS: Hemoglobin A1C 9.8 % (4.0-6.0)
[2017-05-07 20:24] LABS: Glucose,Whole Blood 289 mg/dL (75-99)
[2017-05-07] MEDS: FAMOTIDINE 20 MG TAB PO SCH (20:42)
[2017-05-07] MEDS: HEPARIN SODIUM,PORCINE 5,000 UNIT/ML 1 ML VIAL SQ SCH (20:42)
[2017-05-07] MEDS: ERTAPENEM 1 GM in SODIUM CHLORIDE 0.9% 50 ML IVPB SCH (20:50)
[2017-05-08] MEDS: TOBRAMYCIN 0.3% OPHTH DROPS 5 ML BTL RIGHT EYE SCH ×9 (03:49→17:36)
[2017-05-08 07:17] LABS: Glucose,Whole Blood 173 mg/dL (75-99)
[2017-05-08 07:44] VITALS: RESP 16
[2017-05-08] MEDS: LISINOPRIL 10 MG TAB PO SCH (07:49)
[2017-05-08] MEDS: CLOPIDOGREL 75 MG TAB PO SCH (07:49)
[2017-05-08] MEDS: SODIUM CHLORIDE 0.9% 1,000 ML IV SCH (07:49)
[2017-05-08] MEDS: DOXYCYCLINE 50 MG CAP PO SCH (07:50)
[2017-05-08] MEDS: FAMOTIDINE 20 MG TAB PO SCH (07:50)
[2017-05-08] MEDS: ERTAPENEM 1 GM in SODIUM CHLORIDE 0.9% 50 ML IVPB SCH (07:50)
[2017-05-08] MEDS: HEPARIN SODIUM,PORCINE 5,000 UNIT/ML 1 ML VIAL SQ SCH (07:50)
[2017-05-08] MEDS: glipiZIDE 5 MG TAB PO SCH ×2 (07:51→17:34)
[2017-05-08] MEDS: INSULIN NPH/REG INSULIN 70/30 300 UNIT/3 ML VIAL SQ SCH (08:13)
[2017-05-08] MEDS: INSULIN ASPART 100 UNIT/ML 1 ML 10 ML VIAL SQ SCH ×3 (08:14→17:35)
[2017-05-08 11:42] LABS: Glucose,Whole Blood 172 mg/dL (75-99)
[2017-05-08] MEDS: ACETAMINOPHEN TAB 325 MG TAB PO PRN (14:43)
[2017-05-08 15:53] VITALS: BP 137/86; PULSE 84; TEMP 98
[2017-05-08 17:17] LABS: Glucose,Whole Blood 159 mg/dL (75-99)
--- NOTE | 2017-05-08 21:53 | P.CON ---
Consult Note - . Consult date: 05/08/17 Assessment/Plan:: This is a 72-year-old female who states she had onset of left buttocks pain on Monday. She denies any injury, fall or strain to the area. She then developed a fever on Monday and came into [facility] emergency center for evaluation. She was found have a temperature of 101 and since has been afebrile, leukocytosis of 13.1. Influenza testing was negative. Urinalysis was cloudy, leukoesterase moderate, to be BCs 26, squamous cell 6, bacteria rare, goes him oxalate moderate. Urine culture is been finalized with no growth and blood cultures showing no growth after 24 hours. Patient was started on Levaquin and then switched to ertapenem. She underwent a chest x-ray that showed no acute cardiopulmonary process. X-ray of the lumbar spine showed no acute fracture or dislocation. CAT scan of the abdomen and pelvis without contrast showed no significant finding. Regarding her pain. It is in the left buttocks and she states it initially went across her back. She denies any radiation down her leg. Patient denies having any dysuria or increased frequency at home. She has never had any back problems in the past. She describes it as knife like and if she moves slowly and is okay. If more severe when she sits on the toilet. Patient also is concerned that she has had 3 styes in her right eye since March of this year. She has been treated with 2 courses of antibiotics by Dr. Shah and most recently went to urgent care was placed on doxycycline and tobramycin ophthalmic solution. Patient was hospitalized during March for a TIA with no residual symptoms. 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 Morataya but has had no problems recently. It usually affects the back of her legs and she applies ointment which helps. Patient is concerned that she feels she has had frequent infections over the past year starting one year ago when she had shingles that affected her right eye and down her face into her neck. Patient is a diabetic2 insulin requiring with hemoglobin A1c of 9.8. She states it was recently over 10. Discussed with patient need to have tight glucose control to avoid infections and other diabetic complications. She is interested in seeing an stator connector. Patient does states that she has been admitted, her pain is improved. Patient has only taken Tylenol for pain control. Please see the consult note as dictated by COTTON PICKER Mrs Quita Tao. Patient is without evidence of UTI at this time, thus antibiotics are discontinued and patient to be discharged home for followup with endocrinology. Needs improved glucose control, since it is likely that the high glucose is responsible for the many recent infections she has been having. I agree with evaluation, assessment and plan as dictated by nurse practitioner Mrs. Qutia Tao.
--- NOTE | 2017-05-09 06:55 | PN ---
PROGRESS NOTE SUBJECTIVE: 32-year-old white female admitted with pyelonephritis. Urine culture came back negative. She is still complaining of some back pain, calcium oxalate crystals in the urine. CT scan was negative for any stones or hydronephrosis. Fever, chills, has resolved, that she came in with, she had a possible viral syndrome, hypertension acceleration, diabetes mellitus. Increase Humalog 70/30 to 12 units b.i.d. Chronic back pain. Possible renal stone with calcium oxalate urea. Continue next 24 to 48 hours. Possible discharge with no as urine culture is negative. IV has been discontinued. Possible workup for back pain as an outpatient. MMODL / IJN: [id number] /
--- NOTE | 2017-06-12 09:46 | DS ---
DISCHARGE SUMMARY DISCHARGE MEDICATIONS: 1. Glucotrol 10 mg a.c. b.i.d. 2. Lipitor 40 daily. 3. Plavix 75 daily. 4. Humulin 70/30, 10 units subcu b.i.d. 5. Tobramycin in the eye 2 drops in the right eye every 2 hours. 6. Doxycycline 100 b.i.d. 7. Lisinopril 10 mg b.i.d. CONDITION: Stable. PROGNOSIS: Guarded. Ambulate as tolerated. Follow up in the office within a week. DISCHARGE DIAGNOSES: 1. Acute pyelonephritis. 2. Uncontrolled diabetes mellitus. 3. History of transient ischemic attack. 4. Stye on the right eye. IV antibiotics were given. IV fluids were given. The patient was stabilized over the next 24 to 48 hours. Diabetic medication was switched to insulin. Insulin instructions were given to the patient. IV antibiotics were given. She was switched to oral antibiotics and insulin injections twice a day. Follow up in the office within a week. MMLE / MADYN: [id number] /
== END 2017-05-08 18:37 | disposition home or self-care (01) | DRG 690 ==
LOC: EC 14:14 → 5MS5E 16:51
PROVIDERS: ADMIT Family Medicine; ATTEND Family Medicine
DX: N10 Acute pyelonephritis (principal); E11.40 Type 2 diabetes mellitus with diabetic neuropathy, unspecified; E11.65 Type 2 diabetes mellitus with hyperglycemia; G89.29 Other chronic pain; M54.9 Dorsalgia, unspecified; F41.9 Anxiety disorder, unspecified; H00.023 Hordeolum internum right eye, unspecified eyelid; I10 Essential (primary) hypertension; Z79.4 Long term (current) use of insulin; Z79.02 Long term (current) use of antithrombotics/antiplatelets; Z79.899 Other long term (current) drug therapy; Z88.0 Allergy status to penicillin; Z88.8 Allergy status to other drugs, medicaments and biological substances; Z86.73 Personal history of transient ischemic attack (TIA), and cerebral infarction without residual deficits; Z90.710 Acquired absence of both cervix and uterus; Z82.49 Family history of ischemic heart disease and other diseases of the circulatory system
CPT/HCPCS: 36415; 71046; 72110; 74176; 80053; 81001; 83036; 85025; 87040; 87086; 87502; 93005; 96365; 96375; 99285

== ENCOUNTER → 2017-06-19 | Outpatient (CLI) | payer MEDICARE ==
--- NOTE | 2017-06-20 10:22 | MM ---
Reason for exam: screening (asymptomatic). Last mammogram was performed 1 year and 1 month ago. History: Patient is postmenopausal. Family history of breast cancer in mother at age 70. Benign stereotactic core biopsy of the left breast, March 02, 2001. Benign excisional biopsy of the left breast, February 25, 1998. Physical Findings: A clinical breast exam by your physician is recommended on an annual basis and results should be correlated with mammographic findings. MG 3D Screening Mammo W/Cad Bilateral CC and MLO view(s) were taken. Prior study comparison: May 23, 2016, bilateral MG 3d screening mammo w/cad. May 14, 2015, bilateral MG screening mammo w CAD. There are scattered fibroglandular densities. No significant changes when compared with prior studies. ASSESSMENT: Benign, BI-RAD 2 RECOMMENDATION: Routine screening mammogram of both breasts in 1 year.
== END | disposition home or self-care (01) ==
LOC: RADMAMWWP 09:18
PROVIDERS: ATTEND Family Medicine
DX: Z12.31 Encounter for screening mammogram for malignant neoplasm of breast (principal)
CPT/HCPCS: 77063; 77067

== ENCOUNTER 2018-04-16 16:12 | Observation (INO) | payer MEDICARE ==
--- NOTE | 2018-04-16 15:54 | CT ---
EXAMINATION TYPE: CT angio chest DATE OF EXAM: 04/16/2018 COMPARISON: CTA chest December 02, 2015 HISTORY: Dyspnea. CT DLP: 244.4 mGycm. Automated Exposure Control for Dose Reduction was Utilized. CONTRAST: CTA scan of the thorax is performed with IV Contrast, patient injected with 45ml mL of Isovue 370, pu lmonary embolism protocol. MIP Images are created on CT scanner and reviewed. FINDINGS: LUNGS: Dependent atelectasis is present. Mild central groundglass opacity favors mild alveolar edema. No suspicious focal consolidation is seen. No pleural effusion or pneumothorax is noted. MEDIASTINUM: There is satisfactory enhancement of the pulmonary artery and its branches, there is no CT evidence for pulmonary embolism. There are no greater than 1 cm hilar or mediastinal lymph nodes. No significant pericardial effusion is seen. Cardiomegaly is present. There is coronary artery ravinder cification which is noted marked of coronary artery disease. OTHER: There is rim calcified 1.5 cm splenic artery aneurysm axial image 118. IMPRESSION: 1. No CT evidence for acute pulmonary embolism. 2. CT findings could reflect CHF exacerbation as there is cardiomegaly with suspected mild central al veolar edema. Correlate clinically.
[2018-04-16 18:00] LABS: Basophils # (A) 0.1 k/uL (0-0.2); Basophils % (A) 1 %; Eosinophils # (A) 0.5 k/uL (0-0.7); Eosinophils % (A) 7 %; HCT 44.3 % (34.0-46.0); HGB 15.1 gm/dL (11.4-16.0); Lymphocytes # (A) 1.6 k/uL (1.0-4.8); Lymphocytes % (A) 23 %; MCH 30.9 pg (25.0-35.0); MCHC 34.1 g/dL (31.0-37.0); MCV 90.7 fL (80.0-100.0); Monocytes # (A) 0.3 k/uL (0-1.0); Monocytes % (A) 4 %; Neutrophils # (A) 4.3 k/uL (1.3-7.7); Neutrophils % (A) 62 %; Platelet Count 243 k/uL (150-450); RBC 4.88 m/uL (3.80-5.40); RDW 13.2 % (11.5-15.5); WBC 6.9 k/uL (3.8-10.6)
[2018-04-16 18:09] LABS: ALT 32 U/L (9-52); AST 19 U/L (14-36); Alkaline Phosphatase 96 U/L (38-126); Anion Gap 8 mmol/L; Blood Urea Nitrogen 19 mg/dL (7-17); Calcium 9.7 mg/dL (8.4-10.2); Carbon Dioxide 24 mmol/L (22-30); Chloride 103 mmol/L (98-107); Glucose 266 mg/dL (74-99); Magnesium 1.6 mg/dL (1.6-2.3); Potassium 4.7 mmol/L (3.5-5.1); Sodium 135 mmol/L (137-145); Total Bilirubin 0.8 mg/dL (0.2-1.3); Total Protein 6.7 g/dL (6.3-8.2)
[2018-04-16 18:16] LABS: Creatine Kinase 34 U/L (30-135)
[2018-04-16 18:19] LABS: INR 0.9 (<1.2); Prothrombin Time 9.8 sec (9.0-12.0)
[2018-04-16 18:29] LABS: Creatine Kinase MB 0.6 ng/mL (0.0-2.4); Troponin I <0.012 ng/mL (0.000-0.034)
--- NOTE | 2018-04-16 18:35 | XR ---
EXAMINATION: XR chest 2V DATE AND TIME: 04/16/2018 6:18 PM CLINICAL INDICATION: PHH; difficulty breathing TECHNIQUE: Departmental protocol COMPARISON: 05/06/2017 FINDINGS: The lungs are clear. The pleural spaces are negative. The cardiac silhouette is not enlarged. The remainder of the mediastinal silhouette is unremarkable. The skeletal structures and soft tissues are negative for acute findings. IMPRESSION: NO ACUTE PROCESS.
[2018-04-16] MEDS ORDERED: ACETAMINOPHEN TAB 325 MG TAB PO PRN (18:48)
[2018-04-16] MEDS ORDERED: NALOXONE 0.4 MG/ML 1 ML VIAL IV PRN (18:48)
[2018-04-16] MEDS ORDERED: MORPHINE SULFATE 4 MG/ML SYRINGE IV PRN (18:48)
--- NOTE | 2018-04-16 18:48 | ED ---
General Adult HPI - General Chief complaint: Shortness of Breath Time Seen by Provider: 04/16/18 17:24 Source: patient, RN notes reviewed, old records reviewed Mode of arrival: ambulatory Limitations: no limitations - History of Present Illness Initial comments: 73 old female past history diabetes presents for evaluation of abnormal outpatient CT. Patient found on CT testing to have pulmonary vascular congestion and cardiomegaly which is new. She was seen by her primary care physician earlier today with complaints of pleuritic left-sided chest pain, there was concern for pulmonary embolism. Computed tomography scan is negative for pulmonary embolism. She's had some preceding respiratory complaints including congestion, sore throat, cough, and fever. Patient has no history of heart failure, no history of arrhythmia, no history of CAD. Denies central chest pain, pain is left posterior chest. She has no pain time my evaluation. No dyspnea at rest. No lower extremity swelling. - Related Data Home Medications Medication Instructions Recorded Confirmed Lisinopril [Zestril] 10 mg PO BID 05/06/17 04/16/18 Vit C/E/Zn/Coppr/Lutein/Zeaxan 1 cap PO BID 05/06/17 04/16/18 [Preservision Areds 2 Softgel] Levofloxacin [Levaquin] 500 mg PO DAILY 04/16/18 04/16/18 Levothyroxine Sodium [Synthroid] 25 mcg PO DAILY 04/16/18 04/16/18 Multivitamins, Thera [Multivitamin 1 tab PO DAILY 04/16/18 04/16/18 (formulary)] glipiZIDE [Glucotrol] 10 mg PO DAILY 04/16/18 04/16/18 metFORMIN HCL 1,000 mg PO BID 04/16/18 04/16/18 Previous Rx's Medication Instructions Recorded Clopidogrel [Plavix] 75 mg PO DAILY #30 tab 04/14/17 Allergies Allergy/AdvReac Type Severity Reaction Status Date / Time Insulins Allergy Unknown Verified 04/16/18 17:23 Penicillins Allergy Anaphylaxis Verified 04/16/18 17:23 Most DIABETIC medications Allergy Unknown Uncoded 05/06/17 14:24 Review of Systems ROS Statement: Those systems with pertinent positive or pertinent negative responses have been documented in the HPI. ROS Other: All systems not noted in ROS Statement are negative. Past Medical History Past Medical History: CVA/TIA, Diabetes Mellitus, Hypertension Additional Past Medical History / Comment(s): TIA, diabetic neuropathy History of Any Multi-Drug Resistant Organisms: None Reported Past Surgical History: Hysterectomy, Tonsillectomy Additional Past Surgical History / Comment(s): mass removed from scalp, vein stripping, mastoid tumor removed Past Anesthesia/Blood Transfusion Reactions: No Reported Reaction Past Psychological History: Anxiety Smoking Status: Never smoker Past Alcohol Use History: None Reported Past Drug Use History: None Reported - Past Family History Father Family Medical History: Coronary Artery Disease (CAD), Diabetes Mellitus Mother Family Medical History: Cancer Additional Family Medical History / Comment(s): breast cancer General Exam Limitations: no limitations General appearance: alert, in no apparent distress Head exam: Present: atraumatic, normocephalic Eye exam: Present: normal appearance, PERRL ENT exam: Present: normal exam Neck exam: Present: normal inspection. Absent: tenderness, meningismus Respiratory exam: Present: normal lung sounds bilaterally. Absent: respiratory distress, wheezes, rales Cardiovascular Exam: Present: regular rate, normal rhythm GI/Abdominal exam: Present: soft. Absent: distended, tenderness, guarding Extremities exam: Present: normal inspection, normal capillary refill. Absent: pedal edema, calf tenderness Neurological exam: Present: alert, oriented X3, CN II-XII intact. Absent: motor sensory deficit Psychiatric exam: Present: normal affect, normal mood Skin exam: Present: warm, dry, intact. Absent: cyanosis, diaphoretic Course Vital Signs 04/16/18 16:31 Temperature 98.4 F Pulse Rate 122 H Respiratory 18 Rate Blood Pressure 154/78 O2 Sat by Pulse 97 Oximetry EKG Findings - EKG Comments: EKG Findings:: EKG: Sinus tach at a, left axis deviation, rate of [address] segment elevation or depression, CA interval 136, castration 92, QTC 463 Medical Decision Making - Medical Decision Making 73-year-old female presenting with abnormal outpatient CT. CT was reviewed, shows concern for congestive heart failure, cardiomegaly, pulmonary edema, there is no pulmonary embolism on exam. Patient has nonischemic EKG. Chest x- ray shows no acute findings. Normal CBC, normal CMP, troponin negative, BNP negative, influenza testing in the emergency Department is normal. Patient will be admitted at the recommendation of her primary care physician. Echo will be obtained. Cardiology will be placed on consult. - Lab Data Result diagrams: 04/16/18 17:39 04/16/18 17:39 Lab Results 04/16/18 04/16/18 04/16/18 Range/Units 17:39 17:39 17:39 WBC 6.9 (3.8-10.6) k/uL RBC 4.88 (3.80-5.40) m/uL Hgb 15.1 (11.4-16.0) gm/dL Hct 44.3 (34.0-46.0) % MCV 90.7 (80.0-100.0) fL MCH 30.9 (25.0-35.0) pg MCHC 34.1 (31.0-37.0) g/dL RDW 13.2 (11.5-15.5) % Plt Count 243 (150-450) k/uL Neutrophils % 62 % Lymphocytes % 23 % Monocytes % 4 % Eosinophils % 7 % Basophils % 1 % Neutrophils # 4.3 (1.3-7.7) k/uL Lymphocytes # 1.6 (1.0-4.8) k/uL Monocytes # 0.3 (0-1.0) k/uL Eosinophils # 0.5 (0-0.7) k/uL Basophils # 0.1 (0-0.2) k/uL PT (9.0-12.0) sec INR (<1.2) APTT (22.0-30.0) sec Sodium 135 L (137-145) mmol/L Potassium 4.7 (3.5-5.1) mmol/L Chloride 103 (98-107) mmol/L Carbon Dioxide 24 (22-30) mmol/L Anion Gap 8 mmol/L BUN 19 H (7-17) mg/dL Creatinine 0.67 (0.52-1.04) mg/dL Est GFR (CKD-EPI)AfAm >90 (>60 ml/min/1.73 sqM) Est GFR (CKD-EPI)NonAf 88 (>60 ml/min/1.73 sqM) Glucose 266 H (74-99) mg/dL Calcium 9.7 (8.4-10.2) mg/dL Magnesium 1.6 (1.6-2.3) mg/dL Total Bilirubin 0.8 (0.2-1.3) mg/dL AST 19 (14-36) U/L ALT 32 (9-52) U/L Alkaline Phosphatase 96 (38-126) U/L Total Creatine Kinase 34 (30-135) U/L CK-MB (CK-2) 0.6 (0.0-2.4) ng/mL CK-MB (CK-2) Rel Index 1.8 Troponin I <0.012 (0.000-0.034) ng/mL NT-Pro-B Natriuret Pep pg/mL Total Protein 6.7 (6.3-8.2) g/dL Albumin 4.0 (3.5-5.0) g/dL Influenza Type A RNA (Not Detectd) Influenza Type B (PCR) (Not Detectd) 04/16/18 04/16/18 04/16/18 Range/Units 17:39 17:39 18:05 WBC (3.8-10.6) k/uL RBC (3.80-5.40) m/uL Hgb (11.4-16.0) gm/dL Hct (34.0-46.0) % MCV (80.0-100.0) fL MCH (25.0-35.0) pg MCHC (31.0-37.0) g/dL RDW (11.5-15.5) % Plt Count (150-450) k/uL Neutrophils % % Lymphocytes % % Monocytes % % Eosinophils % % Basophils % % Neutrophils # (1.3-7.7) k/uL Lymphocytes # (1.0-4.8) k/uL Monocytes # (0-1.0) k/uL Eosinophils # (0-0.7) k/uL Basophils # (0-0.2) k/uL PT 9.8 (9.0-12.0) sec INR 0.9 (<1.2) APTT 23.0 (22.0-30.0) sec Sodium (137-145) mmol/L Potassium (3.5-5.1) mmol/L Chloride (98-107) mmol/L Carbon Dioxide (22-30) mmol/L Anion Gap mmol/L BUN (7-17) mg/dL Creatinine (0.52-1.04) mg/dL Est GFR (CKD-EPI)AfAm (>60 ml/min/1.73 sqM) Est GFR (CKD-EPI)NonAf (>60 ml/min/1.73 sqM) Glucose (74-99) mg/dL Calcium (8.4-10.2) mg/dL Magnesium (1.6-2.3) mg/dL Total Bilirubin (0.2-1.3) mg/dL AST (14-36) U/L ALT (9-52) U/L Alkaline Phosphatase (38-126) U/L Total Creatine Kinase (30-135) U/L CK-MB (CK-2) (0.0-2.4) ng/mL CK-MB (CK-2) Rel Index Troponin I (0.000-0.034) ng/mL NT-Pro-B Natriuret Pep 38 pg/mL Total Protein (6.3-8.2) g/dL Albumin (3.5-5.0) g/dL Influenza Type A RNA Not Detected (Not Detectd) Influenza Type B (PCR) Not Detected (Not Detectd) Disposition Clinical Impression: Chest pain, Cardiomegaly Disposition: ADMITTED IP TO THIS [facility] Condition: Stable Is patient prescribed a controlled substance at d/c from ED?: No Referrals: Oleg Chambers MD [Primary Care Provider] - 1-2 days Decision to Admit Reason: Admit from EC Decision Date: 04/16/18 Decision Time: 18:47
[2018-04-16 21:01] VITALS: BMI 26.2
[2018-04-16] MEDS: LISINOPRIL 10 MG TAB PO SCH (21:10)
[2018-04-16] MEDS: metFORMIN 500 MG TAB PO SCH (21:10)
[2018-04-16 21:13] LABS: Glucose,Whole Blood 261 mg/dL (75-99)
[2018-04-16 21:14] VITALS: RESP 16
[2018-04-16 23:55] LABS: Creatine Kinase 34 U/L (30-135)
[2018-04-17 00:09] LABS: Creatine Kinase MB 0.5 ng/mL (0.0-2.4); Troponin I <0.012 ng/mL (0.000-0.034)
[2018-04-17] MEDS: VIT A,C & E-LUTEIN-MINERALS 1 EACH TAB PO SCH ×2 (01:36→08:49)
[2018-04-17 05:34] LABS: Basophils # (A) 0.1 k/uL (0-0.2); Basophils % (A) 1 %; Eosinophils # (A) 0.6 k/uL (0-0.7); Eosinophils % (A) 9 %; HGB 13.9 gm/dL (11.4-16.0); Lymphocytes # (A) 1.9 k/uL (1.0-4.8); Lymphocytes % (A) 28 %; MCH 29.8 pg (25.0-35.0); MCHC 32.4 g/dL (31.0-37.0); MCV 91.9 fL (80.0-100.0); Mean Platelet Volume 6.3; Monocytes # (A) 0.3 k/uL (0-1.0); Monocytes % (A) 5 %; Neutrophils # (A) 3.8 k/uL (1.3-7.7); Neutrophils % (A) 56 %; Platelet Count 224 k/uL (150-450); RBC 4.68 m/uL (3.80-5.40); RDW 13.1 % (11.5-15.5); WBC 6.9 k/uL (3.8-10.6)
[2018-04-17 05:46] LABS: Anion Gap 7 mmol/L; Blood Urea Nitrogen 17 mg/dL (7-17); Calcium 9.3 mg/dL (8.4-10.2); Carbon Dioxide 24 mmol/L (22-30); Chloride 106 mmol/L (98-107); Glucose 244 mg/dL (74-99); Potassium 4.3 mmol/L (3.5-5.1); Sodium 137 mmol/L (137-145)
[2018-04-17 05:49] LABS: Creatine Kinase 34 U/L (30-135)
[2018-04-17 06:02] LABS: Creatine Kinase MB 0.5 ng/mL (0.0-2.4); Troponin I <0.012 ng/mL (0.000-0.034)
[2018-04-17] MEDS ORDERED: LEVOTHYROXINE 25 MCG TAB PO SCH (06:30)
[2018-04-17 06:39] LABS: Glucose,Whole Blood 246 mg/dL (75-99)
[2018-04-17] MEDS: metFORMIN 500 MG TAB PO SCH (07:01)
[2018-04-17] MEDS: LISINOPRIL 10 MG TAB PO SCH (08:49)
--- NOTE | 2018-04-17 08:59 | P.CRDCN ---
History of Present Illness Consult date: 04/17/18 Requesting physician: Seng Krishna Consult reason: congestive heart failure Chief complaint: Scapular pain History of present illness: This is a 73-year-old female with history of hypertension, diabetes, hyperlipidemia, anxiety, who has generally not been feeling well recently, she states that she's been dealing with a stye in her left eye, subsequently she also developed strep throat and laryngitis, she went to see her primary care doctor and was complaining of some pain in her upper back and scapular region. For this reason she was advised to come to the emergency room to undergo a CAT scan to rule out the possibility of PE. The CAT scan did rule out a pulmonary embolism, but it suggested possible findings of CHF exacerbation and cardiomegaly, and for this reason patient was advised for admission. Overall she denies any shortness of breath, no chest discomfort, no peripheral edema. She did have an echocardiogram with Doppler study performed in March of last year which revealed a normal left ventricular systolic function with mild to moderate tricuspid regurgitation noted at that time. CTA of the chest as mentioned previously was negative for PE, findings reflective of CHF exacerbation and cardiomegaly, with suspected mild central alveolar edema. Chest x-ray normal. EKG shows a sinus tachycardia with nonspecific ST-T wave changes. Blood pressure 130/70 with a heart rate in the 90s, 97% on room air. White blood cell count is normal, hemoglobin 13.9, platelet count 224. Sodium 137, potassium 4.3, BUN 17 and creatinine 0.6. Troponins have been negative 3 , BNP level 38. Influenza A and B were negative. At the time of my examination this morning, patient states that she feels achy all over, denies any chest discomfort and there is no difficulty in breathing. Past Medical History Past Medical History: CVA/TIA, Diabetes Mellitus, Hypertension Additional Past Medical History / Comment(s): TIA, diabetic neuropathy History of Any Multi-Drug Resistant Organisms: None Reported Past Surgical History: Hysterectomy, Tonsillectomy Additional Past Surgical History / Comment(s): mass removed from scalp, vein stripping x2, mastoid tumor removed Past Anesthesia/Blood Transfusion Reactions: No Reported Reaction Past Psychological History: No Psychological Hx Reported Smoking Status: Never smoker Past Alcohol Use History: None Reported Additional Past Alcohol Use History / Comment(s): Patient is a lifelong nonsmoker. She denies any medical marijuana, and we are monitoring, street drug use. She denies any alcohol use. She is and lives at home with her . There are 2 dogs in the home. She denies any recent travel but camps in the summertime locally. She has worked for [employer] and then for [employer]. Past Drug Use History: None Reported - Past Family History Father Family Medical History: Coronary Artery Disease (CAD), Diabetes Mellitus Mother Family Medical History: Cancer Additional Family Medical History / Comment(s): breast cancer Medications and Allergies Home Medications Medication Instructions Recorded Confirmed Type Clopidogrel [Plavix] 75 mg PO DAILY #30 tab 04/14/17 04/16/18 Rx Lisinopril [Zestril] 10 mg PO BID 05/06/17 04/16/18 History Vit C/E/Zn/Coppr/Lutein/Zeaxan 1 cap PO BID 05/06/17 04/16/18 History [Preservision Areds 2 Softgel] Levofloxacin [Levaquin] 500 mg PO DAILY 04/16/18 04/16/18 History Levothyroxine Sodium [Synthroid] 25 mcg PO DAILY 04/16/18 04/16/18 History Multivitamins, Thera [Multivitamin 1 tab PO DAILY 04/16/18 04/16/18 History (formulary)] glipiZIDE [Glucotrol] 10 mg PO DAILY 04/16/18 04/16/18 History metFORMIN HCL 1,000 mg PO BID 04/16/18 04/16/18 History Allergies Allergy/AdvReac Type Severity Reaction Status Date / Time Insulins Allergy Unknown Verified 04/16/18 17:23 Penicillins Allergy Anaphylaxis Verified 04/16/18 17:23 Most DIABETIC medications Allergy Unknown Uncoded 05/06/17 14:24 Physical Exam Vitals: Vital Signs Temp Pulse Pulse Resp BP BP Pulse Ox 04/17/18 08:00 98.0 F 96 16 130/78 97 04/17/18 04:00 87 16 143/76 96 04/17/18 00:00 99 16 135/69 100 04/16/18 20:00 97.9 F 94 16 146/79 95 04/16/18 18:59 99 18 138/78 97 04/16/18 18:00 74 18 126/77 97 04/16/18 17:36 70 18 153/88 97 04/16/18 16:31 98.4 F 122 H 18 154/78 97 Intake and Output 04/16/18 04/17/18 04/17/18 22:59 06:59 14:59 Intake Total 20 240 Balance 20 240 Intake: Amount of Fluid Infused ( 20 ml) Oral 240 Other: # Voids 1 1 Weight 80.7 kg 80.7 kg PHYSICAL EXAMINATION: GENERAL: 73-year-old female in no acute distress at the time of my examination HEENT: Head is atraumatic, normocephalic. Pupils equal, round. Sclera anicteric. Conjunctiva are clear. Mucous membranes of the mouth are moist. Neck is supple. There is no elevated jugular venous pressure. No carotid bruit is heard. HEART EXAMINATION: Heart S1, S2 normal. Tachycardic. No murmur or gallop heard. CHEST EXAMINATION: Lungs are clear to auscultation and precussion. No chest wall tenderness is noted on palpation or with deep breathing. ABDOMEN: Soft, nontender. Bowel sounds are heard. No organomegaly noted. EXTREMITIES: 2+ peripheral pulses with no evidence of peripheral edema and no calf tenderness noted. NEUROLOGIC patient is awake, alert and oriented 3 . . Results 04/17/18 05:23 04/17/18 05:23 Cardiac Enzymes 04/16/18 04/16/18 04/16/18 Range/Units 17:39 17:39 23:15 AST 19 (14-36) U/L CK-MB (CK-2) 0.6 0.5 (0.0-2.4) ng/mL Troponin I <0.012 <0.012 (0.000-0.034) ng/mL 04/17/18 Range/Units 05:23 AST (14-36) U/L CK-MB (CK-2) 0.5 (0.0-2.4) ng/mL Troponin I <0.012 (0.000-0.034) ng/mL Coagulation 04/16/18 Range/Units 17:39 PT 9.8 (9.0-12.0) sec APTT 23.0 (22.0-30.0) sec CBC 04/16/18 04/17/18 Range/Units 17:39 05:23 WBC 6.9 6.9 (3.8-10.6) k/uL RBC 4.88 4.68 (3.80-5.40) m/uL Hgb 15.1 13.9 (11.4-16.0) gm/dL Hct 44.3 43.0 (34.0-46.0) % Plt Count 243 224 (150-450) k/uL Comprehensive Metabolic Panel 04/16/18 04/17/18 Range/Units 17:39 05:23 Sodium 135 L 137 (137-145) mmol/L Potassium 4.7 4.3 (3.5-5.1) mmol/L Chloride 103 106 (98-107) mmol/L Carbon Dioxide 24 24 (22-30) mmol/L BUN 19 H 17 (7-17) mg/dL Creatinine 0.67 0.62 (0.52-1.04) mg/dL Glucose 266 H 244 H (74-99) mg/dL Calcium 9.7 9.3 (8.4-10.2) mg/dL AST 19 (14-36) U/L ALT 32 (9-52) U/L Alkaline Phosphatase 96 (38-126) U/L Total Protein 6.7 (6.3-8.2) g/dL Albumin 4.0 (3.5-5.0) g/dL Current Medications Generic Name Dose Route Start Last Admin Trade Name Freq PRN Reason Stop Dose Admin Acetaminophen 650 mg 04/16/18 18:48 Tylenol Tab PO Q6HR PRN Mild Pain or Fever > 100.5 Clopidogrel Bisulfate 75 mg 04/17/18 09:00 04/17/18 08:49 Plavix PO 75 mg DAILY YAMILE Administration Levofloxacin 500 mg 04/17/18 09:00 04/17/18 08:49 Levaquin PO 04/20/18 09:00 500 mg DAILY YAMILE Administration Levothyroxine Sodium 25 mcg 04/17/18 06:30 04/17/18 07:01 Synthroid PO 25 mcg DAILY@0630 YAMILE Administration Lisinopril 10 mg 04/16/18 21:00 04/17/18 08:49 Zestril PO 10 mg BID YAMILE Administration Metformin HCl 1,000 mg 04/16/18 21:00 04/17/18 07:01 Glucophage PO 1,000 mg AC-BID YAMILE Administration Morphine Sulfate 4 mg 04/16/18 18:48 Morphine Sulfate (Inj) IV Q4HR PRN Severe Pain Multivitamins 1 each 04/17/18 12:00 Theragran PO DAILY@1200 [facility] Multivitamins/Minerals 1 each 04/16/18 21:00 04/17/18 08:49 Ivite PO 1 each BID YAMILE Administration Naloxone HCl 0.2 mg 04/16/18 18:48 Narcan IV Q2M PRN Opioid Reversal Intake and Output 04/16/18 04/17/18 04/17/18 22:59 06:59 14:59 Intake Total 20 240 Balance 20 240 Intake: Amount of Fluid Infused ( 20 ml) Oral 240 Other: # Voids 1 1 Weight 80.7 kg 80.7 kg 04/17/18 05:23 04/17/18 05:23 EKG Interpretations (text) EKG shows a sinus tachycardia with no acute changes. Assessment and Plan Plan: Assessment and plan #1 up are back and scapular discomfort with a generalized aches and pains. PE ruled out by CAT scan. CAT scan did suggest congestive heart failure however the chest x-ray is normal and BNP level is 38. #2 recent stye #3 recent strep throat, patient has been on antibiotics as an outpatient. #4 history of hypertension #5 diabetes Plan We will obtain an echocardiogram with Doppler study. The patient is a known diabetic, we would recommend to start the patient on a statin. No evidence of congestive heart failure at this time. Further recommendations to follow. DNP note has been reviewed, I agree with a documented findings and plan of care. Patient was seen and examined.
[2018-04-17] MEDS ORDERED: CLOPIDOGREL 75 MG TAB PO SCH (09:00)
[2018-04-17] MEDS ORDERED: LEVOFLOXACIN 500 MG TAB PO SCH (09:00)
[2018-04-17] MEDS ORDERED: MULTIVITAMINS, THERA 1 EACH TAB PO SCH (12:00)
[2018-04-17] MEDS ORDERED: SODIUM CHLORIDE 0.9% 1,000 ML IV SCH (12:15)
[2018-04-17 12:16] LABS: Glucose,Whole Blood 236 mg/dL (75-99)
[2018-04-17] MEDS: INSULIN ASPART 100 UNIT/ML 1 ML 10 ML VIAL SQ SCH ×2 (12:33→16:37)
[2018-04-17 12:47] LABS: Hemoglobin A1C 9.4 % (4.0-6.0)
--- NOTE | 2018-04-17 13:37 | P.HPIM ---
History of Present Illness H&P Date: 04/17/18 HISTORY AND PHYSICAL AND DISCHARGE SUMMARY: This is a 73-year-old female patient of Dr. Chambers. 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 She has been on antibiotics for laryngitis. She saw Dr. Chambers on Monday for back pain and scapula region pain and there was concern for pulmonary embolism and patient was sent into [facility] emergency center for evaluation. CAT scan did rule out a pulmonary embolism, but it suggested possible findings of CHF exacerbation and cardiomegaly, and for this reason patient was advised for admission. She denies any shortness of breath, no chest discomfort, no peripheral edema. She did have an echocardiogram with Doppler study performed in March of last year which revealed a normal left ventricular systolic function with mild to moderate tricuspid regurgitation noted at that time. Chest x-ray normal. EKG shows a sinus tachycardia with nonspecific ST-T wave changes. Blood pressure 130/70 with a heart rate in the 90s, 97% on room air. It is noted that her heart rate jumped up to the 120s with activity to the bathroom. She denies any palpitations. White blood cell count is normal, hemoglobin 13.9, platelet count 224. Sodium 137, potassium 4.3, BUN 17 and creatinine 0.6. Troponins have been negative 3, BNP level 38. Influenza A and B were negative. Regarding diabetes, blood sugars are running in the 200s and she states this is normal for her to run in the 200s at home. She states she has a reaction to almost all diabetic medications and recently was resumed back on metformin for which causes her diarrhea. She states she has met with the family living educator in the past and has tried multiple medications including Actos, glimepiride, glipizide, Januvia, to the city. She states she has also been on insulin and the insulin to nod make her blood sugars change so she refuses to take them. She states she talked to Dr. Chambers regarding having genetic testing regarding diabetes. Her last hemoglobin A1c is 8.5. She denies any history of DVT or PE , no renal stones. Patient is complaining of sharp flank pain that started on Monday and also complaining of her stomach rumbling and diarrhea which is worse than what she normally has with metformin. She has had 8 watery stools since last evening. She complains of thick yellow drainage from her nose. No shortness of breath, positive cough. CT of the abdomen and pelvis with oral contrast showed wall thickening involving the right colon felt to be related to incomplete distention rather than mild colitis or mucosal lesions. No surrounding inflammatory changes correlate clinically and with direct visualization as warranted. Calcified splenic artery aneurysm on the left. No evidence of hydronephrosis or nephrolithiasis. Echocardiogram reveals EF of 60-65% with mild concentric left ventricular hypertrophy. Stool lactoferrin was negative, C. difficile toxin negative. Stool culture is in progress. Urinalysis was cloudy, nitrate and leukoesterase negative, ketones 4+, blood 1+, RBCs 7, calcium oxalate crystals moderate. Patient was discharged home on the same medications, no new prescriptions provided. Review of Systems All systems: negative Constitutional: Denies anorexia, Denies chills, Denies fatigue, Denies fever, Denies poor appetite, Denies weight loss Eyes: denies blurred vision, denies pain Ears, nose, mouth and throat: Reports hoarseness, Reports nasal congestion, Reports nasal discharge, Denies dental pain, Denies headache, Denies sore throat , Denies vertigo Cardiovascular: Denies chest pain, Denies dyspnea on exertion, Denies shortness of breath Respiratory: Reports cough, Reports respiratory infections, Denies cough with sputum, Denies dyspnea, Denies excessive sputum, Denies home oxygen, Denies wheezing Gastrointestinal: Reports diarrhea, Denies abdominal pain, Denies loss of appetite, Denies nausea, Denies vomiting Genitourinary: Denies dysuria, Denies hematuria, Denies kidney stones, Denies urgency, Denies urinary frequency Musculoskeletal: Denies frequent falls, Denies gait dysfunction, Denies myalgias Integumentary: Denies pruritus, Denies rash, Denies wounds Neurological: Denies aphasia, Denies change in mentation, Denies change in speech, Denies confusion, Denies gait dysfunction, Denies head injury, Denies headaches, Denies numbness, Denies seizures, Denies weakness Psychiatric: Denies anxiety, Denies depression Endocrine: Denies fatigue, Denies weight change Past Medical History Past Medical History: CVA/TIA, Diabetes Mellitus, Hypertension Additional Past Medical History / Comment(s): TIA, diabetic neuropathy History of Any Multi-Drug Resistant Organisms: None Reported Past Surgical History: Hysterectomy, Tonsillectomy Additional Past Surgical History / Comment(s): mass removed from scalp, vein stripping x2, mastoid tumor removed Past Anesthesia/Blood Transfusion Reactions: No Reported Reaction Past Psychological History: No Psychological Hx Reported Smoking Status: Never smoker Past Alcohol Use History: None Reported Additional Past Alcohol Use History / Comment(s): Patient is a lifelong nonsmoker. She denies any marijuana, street drug use. She denies any alcohol use. She is and lives at home with her . There are 2 dogs in the home. She denies any recent travel but camps in the summertime locally. She has worked for [employer] and then for [employer]. Past Drug Use History: None Reported - Past Family History Father Family Medical History: Coronary Artery Disease (CAD), Diabetes Mellitus Additional Family Medical History / Comment(s): Father from combinations of COPD and myocardial infarction. He also had history of diabetes type 2. No history of coronary artery disease. Mother Family Medical History: Cancer Additional Family Medical History / Comment(s): A mother from a cerebral hemorrhage with history of breast cancer. No history of coronary artery disease. Brother(s) Additional Family Medical History / Comment(s): Patient has one brother and one sister with diabetes mellitus type 2. Medications and Allergies Home Medications Medication Instructions Recorded Confirmed Type Clopidogrel [Plavix] 75 mg PO DAILY #30 tab 04/14/17 04/16/18 Rx Lisinopril [Zestril] 10 mg PO BID 05/06/17 04/16/18 History Vit C/E/Zn/Coppr/Lutein/Zeaxan 1 cap PO BID 05/06/17 04/16/18 History [Preservision Areds 2 Softgel] Levofloxacin [Levaquin] 500 mg PO DAILY 04/16/18 04/16/18 History Levothyroxine Sodium [Synthroid] 25 mcg PO DAILY 04/16/18 04/16/18 History Multivitamins, Thera [Multivitamin 1 tab PO DAILY 04/16/18 04/16/18 History (formulary)] glipiZIDE [Glucotrol] 10 mg PO DAILY 04/16/18 04/16/18 History metFORMIN HCL 1,000 mg PO BID 04/16/18 04/16/18 History Allergies Allergy/AdvReac Type Severity Reaction Status Date / Time Insulins Allergy Unknown Verified 04/16/18 17:23 Penicillins Allergy Anaphylaxis Verified 04/16/18 17:23 Most DIABETIC medications Allergy Unknown Uncoded 05/06/17 14:24 Physical Exam Vitals: Vital Signs Temp Pulse Pulse Resp BP BP Pulse Ox 04/17/18 11:53 98.1 F 122 H 16 125/71 98 04/17/18 08:00 98.0 F 96 16 130/78 97 04/17/18 04:00 87 16 143/76 96 04/17/18 00:00 99 16 135/69 100 04/16/18 20:00 97.9 F 94 16 146/79 95 04/16/18 18:59 99 18 138/78 97 04/16/18 18:00 74 18 126/77 97 04/16/18 17:36 70 18 153/88 97 04/16/18 16:31 98.4 F 122 H 18 154/78 97 Intake and Output 04/16/18 04/17/18 04/17/18 22:59 06:59 14:59 Intake Total 20 240 Balance 20 240 Intake: Amount of Fluid Infused ( 20 ml) Oral 240 Other: # Voids 1 1 Weight 80.7 kg 80.7 kg Gen: This is a 73-year-old female. She is sitting up in bed appears to be comfortable and in no acute distress. HEENT: Head is atraumatic, normocephalic. Pupils equal, round. Sclerae is anicteric. Conjunctiva pink. NECK: Supple. No JVD. No lymphadenopathy. No thyromegaly. LUNGS: Clear to auscultation. No wheezes or rhonchi. No intercostal retractions. HEART: Regular rate and rhythm. No murmur. ABDOMEN: Soft. Bowel sounds are present. No masses. No tenderness. EXTREMITIES: No pedal edema. No calf tenderness. Dorsalis pedis +2 bilaterally. NEUROLOGICAL: Patient is awake, alert and oriented x3. Cranial nerves 2 through 12 are grossly intact. Results CBC & Chem 7: 04/17/18 05:23 04/17/18 05:23 Labs: Abnormal Lab Results - Last 24 Hours (Table) 04/16/18 04/16/18 04/17/18 Range/Units 17:39 21:12 05:23 Sodium 135 L (137-145) mmol/L BUN 19 H (7-17) mg/dL Glucose 266 H 244 H (74-99) mg/dL POC Glucose (mg/dL) 261 H (75-99) mg/dL TSH (0.465-4.680) mIU/L 04/17/18 04/17/18 Range/Units 05:23 06:37 Sodium (137-145) mmol/L BUN (7-17) mg/dL Glucose (74-99) mg/dL POC Glucose (mg/dL) 246 H (75-99) mg/dL TSH 5.370 H (0.465-4.680) mIU/L Thrombosis Risk Factor Assmnt - DVT/VTE Prophylaxis DVT/VTE Prophylaxis: Mechanical Prophylaxis ordered - Choose All That Apply Any of the Below Risk Factors Present?: No Other Risk Factors: Yes Each Risk Factor Represents 2 Points: Age 61-74 years Other congenital or acquired thrombophilia - If yes, enter type in comment: No Thrombosis Risk Factor Assessment Total Risk Factor Score: 2 Thrombosis Risk Factor Assessment Level: Low Risk Assessment and Plan Plan: 1. Left flank pain of unclear etiology. 2. PE ruled out. No signs of heart failure. 3. Laryngitis currently on oral Levaquin. 4. Diarrhea possibly secondary to metformin, C. difficile colitis ruled out. 5. Diabetes mellitus type 2 uncontrolled with hyperglycemia. Patient states that she has reactions to all oral diabetic medications and insulins do not help her blood sugars. Patient will be continued on her home dose of metformin 1000 mg twice daily and glipizide 10 mg daily. We have ordered NovoLog scale but patient states she will not take it. 6. Hypertension. Continue lisinopril 10 mg twice daily. 7. History of TIA. Continue Plavix. 8. Diabetes mellitus type 2 with diabetic neuropathy. 9. Hypothyroidism. Continue levothyroxine 25 g daily.. Patient placed as an observation status. Discharge plan: Return home Impression and plan of care have been directed as dictated by the signing physician. Quita Tao nurse practitioner acting as scribe for signing physician.
[2018-04-17] MEDS: IOPAMIDOL-300 CONTRAST 30 ML VIAL (ORAL USE) PO PRN ×2 (14:10→14:45)
--- NOTE | 2018-04-17 14:28 | ECHOF ---
Referral Reason:chf MEASUREMENTS -------- HEIGHT: 175.3 cm WEIGHT: 80.3 kg BP: 130/78 IVSd: 1.3 cm (0.6 - 1.1) LVIDd: 4.3 cm (3.9 - 5.3) LVPWd: 1.3 cm (0.6 - 1.1) IVSs: 1.8 cm LVIDs: 2.5 cm LVPWs: 1.7 cm LA Diam: 3.4 cm (2.7 - 3.8) RVIDd: 3.2 cm (< 3.3) LAESV Index (A-L): 21.70 ml/m Ao Diam: 3.3 cm (2.0 - 3.7) AV Cusp: 2.0 cm (1.5 - 2.6) EPSS: 0.9 cm MV E Jaren: 0.58 m/s MV DecT: 286 ms MV A Jaren: 1.10 m/s MV E/A Ratio: 0.52 MV EF SLOPE: 57.12 mm/s (70 - 150) MV EXCURSION: 13.19 mm (> 18.000) FINDINGS -------- Sinus rhythm. This was a technically adequate study. The left ventricular size is normal. There is mild concentric left ventricular hypertrophy. Overa ll left ventricular systolic function is normal with, an EF between 60 - 65 %. The right ventricle is normal in size. Normal LA size by volume 22+/-6 ml/m2. The right atrium is normal in size. The aortic valve is trileaflet and appears structurally normal. The mitral valve is normal. The tricuspid valve appears structurally normal. Trace/mild (physiologic) pulmonic regurgitation. The aortic root size is normal. Normal inferior vena cava with normal inspiratory collapse consistent with estimated right atrial pre ssure of 5 mmHg. There is no pericardial effusion. CONCLUSIONS -------- 1. Sinus rhythm. 2. This was a technically adequate study. 3. The left ventricular size is normal. 4. There is mild concentric left ventricular hypertrophy. 5. Overall left ventricular systolic function is normal with, an EF between 60 - 65 %. 6. The right ventricle is normal in size. 7. Normal LA size by volume 22+/-6 ml/m2. 8. The right atrium is normal in size. 9. The aortic valve is trileaflet and appears structurally normal. 10. The mitral valve is normal. 11. The tricuspid valve appears structurally normal. 12. Trace/mild (physiologic) pulmonic regurgitation. 13. The aortic root size is normal. 14. Normal inferior vena cava with normal inspiratory collapse consistent with estimated right atrial pressure of 5 mmHg. 15. There is no pericardial effusion. RESTAURANT ASSISTANT: Shelia Rodriguez RDCS
[2018-04-17 15:50] VITALS: BP 129/85; PULSE 98; TEMP 97.9
--- NOTE | 2018-04-17 15:51 | CT ---
EXAMINATION TYPE: CT abdomen pelvis wo con DATE OF EXAM: 04/17/2018 COMPARISON: 05/06/2017 HISTORY: Generalized pain with nausea and diarrhea CT DLP: 562.8 mGycm Automated exposure control for dose reduction was used. TECHNIQUE: Helical acquisition of images was performed from the lung bases through the pelvis. FINDINGS: LUNG BASES: No significant abnormality is appreciated. LIVER/GB: No significant abnormality is appreciated. PANCREAS: No significant abnormality is seen. SPLEEN: Calcified splenic artery aneurysm noted. ADRENALS: No significant abnormality is seen. KIDNEYS: No significant abnormality is seen. ADENOPATHY: None visualized. OSSEOUS STRUCTURES: Alignment is anatomic. Mild hypertrophic changes. Sclerotic focus in the lower t horacic spine is too small to characterize. BOWEL: There is mild wall thickening involving the right colon which may be related to incomplete di stention rather than colitis or mucosal lesion correlate clinically. OTHER: No free fluid. There is atherosclerotic change of the vasculature. Normal caliber aorta. IMPRESSION: 1. Wall thickening involving the right colon felt to be related to incomplete distention rather than mild colitis or mucosal lesion. No surrounding inflammatory changes correlate clinically and with dir ect visualization as clinically warranted. 2. Calcified splenic artery aneurysm on the left 3. No evidence of hydronephrosis or nephrolithiasis.
[2018-04-17 16:03] LABS: Appearance,Urine Cloudy (Clear); Bilirubin,Urine Negative (Negative); Blood,Urine Negative (Negative); Calcium Oxalate Crystals,Urine Moderate /hpf; Color,Urine Yellow; Glucose,Urine (UA) 4+ (Negative); Ketones,Urine 1+ (Negative); Leukocyte Esterase,Urine Negative (Negative); Mucus,Urine Rare /hpf; Nitrite,Urine Negative (Negative); Protein,Urine Trace (Negative); RBC,Urine 7 /hpf (0-5); Specific Gravity,Urine 1.031 (1.001-1.035); Squamous Epithelial Cell,Urine 2 /hpf (0-4); Urobilinogen,Urine <2.0 mg/dL (<2.0); WBC,Urine 2 /hpf (0-5)
[2018-04-17 16:24] LABS: Glucose,Whole Blood 284 mg/dL (75-99)
[2018-04-17] MEDS ORDERED: ATORVASTATIN 40 MG TAB PO SCH (21:00)
[2018-04-18] MEDS ORDERED: glipiZIDE 10 MG TAB PO SCH (09:00)
== END 2018-04-17 17:29 | disposition home or self-care (01) ==
LOC: EC 16:12 → 3SCARD 18:49 → INTOOBSV 18:49 → 3SCARD 20:00
PROVIDERS: ADMIT Internal Medicine; ATTEND Internal Medicine
DX: E11.40 Type 2 diabetes mellitus with diabetic neuropathy, unspecified (principal); I10 Essential (primary) hypertension; E78.5 Hyperlipidemia, unspecified; E11.65 Type 2 diabetes mellitus with hyperglycemia; F41.1 Generalized anxiety disorder; Z86.73 Personal history of transient ischemic attack (TIA), and cerebral infarction without residual deficits; J04.0 Acute laryngitis; J02.0 Streptococcal pharyngitis; M54.6 Pain in thoracic spine; M54.89 Other dorsalgia; R19.7 Diarrhea, unspecified; E03.9 Hypothyroidism, unspecified; H00.016 Hordeolum externum left eye, unspecified eyelid; Z79.899 Other long term (current) drug therapy; Z79.890 Hormone replacement therapy; Z79.84 Long term (current) use of oral hypoglycemic drugs; Z79.02 Long term (current) use of antithrombotics/antiplatelets; Z88.8 Allergy status to other drugs, medicaments and biological substances; Z88.0 Allergy status to penicillin; Z80.3 Family history of malignant neoplasm of breast; Z82.5 Family history of asthma and other chronic lower respiratory diseases; Z82.49 Family history of ischemic heart disease and other diseases of the circulatory system
CPT/HCPCS: 99285; 36415; 93005; 93306; 83880; 80053; 80048; 82550 ×2; 82553 ×2; 83735; 84443; 84484 ×2; 85025 ×2; 85610; 85730; 81001; 87040; 87324; 87045; 83630; 87046; 87502; 83036; 71046; 71275; 74176; G0378 ×2; Q9967

== ENCOUNTER → 2018-06-20 | Outpatient (CLI) | payer MEDICARE ==
--- NOTE | 2018-06-21 10:19 | MM ---
Reason for exam: screening (asymptomatic). Last mammogram was performed 1 year ago. History: Patient is postmenopausal. Family history of breast cancer in mother at age 70. Benign stereotactic core biopsy of the left breast, March 02, 2001. Benign excisional biopsy of the left breast, February 25, 1998. Physical Findings: A clinical breast exam by your physician is recommended on an annual basis and results should be correlated with mammographic findings. MG 3D Screening Mammo W/Cad Bilateral CC and MLO view(s) were taken. Prior study comparison: June 19, 2017, bilateral MG 3d screening mammo w/cad. May 23, 2016, bilateral MG 3d screening mammo w/cad. There are scattered fibroglandular densities. There is no discrete abnormality. No significant changes when compared with prior studies. ASSESSMENT: Negative, BI-RAD 1 RECOMMENDATION: Routine screening mammogram of both breasts in 1 year.
== END ==
LOC: RADMAMWWP 08:47
PROVIDERS: ATTEND Internal Medicine
DX: Z12.31 Encounter for screening mammogram for malignant neoplasm of breast (principal)
CPT/HCPCS: 77063; 77067

== ENCOUNTER → 2018-07-03 | Outpatient (CLI) | payer MEDICARE ==
--- NOTE | 2018-07-03 12:59 | BD ---
EXAMINATION TYPE: Axial Bone Density DATE OF EXAM: 07/03/2018 COMPARISON: 2012 CLINICAL HISTORY: Height: 68 inches Weight: 177 FRAX RISK QUESTIONS: Alcohol (3 or more units per day): no Family History (Parent hip fracture): no Glucocorticoids (More than 3mos): no (Ex: prednisone, prednisolone, methylprednisolone, dexamethasone, and hydrocortisone). History of Fracture in Adulthood: no Secondary Osteoporosis: 1. Type 1 Diabetes: no, type II 2. Hyperthyroidism: unsure 3. Menopause before 45: no 4. Malnutrition: no 5. Chronic liver disease: no Rheumatoid Arthritis: no Current Tobacco Use: no RISK FACTORS HISTORY OF: Family History of Osteoporosis: no Active: yes Diet low in dairy products/other sources of calcium: at least one serving a day Postmenopausal woman: yes Take estrogen and/or progesterone medications: no Lost more than 2 inches in height since high school: no Frequent falls: no Poor Health: no Hyperparathyroidism: no Adrenal Insufficiency: no MEDICATIONS: Prednisone or other steroids: no Thyroid Medications: yes Which medication: Levothyroxine How Long: about 1 year Osteoporosis Medications: no Additional Medications: insulin, blood pressure med, cholesterol , multi Vitamin Additional History: type II diabetes EXAM MEASUREMENTS: Bone mineral densitometry was performed using the i-marker System. Bone mineral density as measured about the Lumbar spine is: ----- L1-L4(G/cm2): 1.009 T Score Values are as follows: ----- L2: -1.7 ----- L3: -1.3 ----- L4: -1.8 ----- L1-L4: -1.4 Bone mineral density has: Decreased -3.2% since study of: 05/22/2012 Bone mineral density about the R hip (g/cm2): 0.776 Bone mineral density about the L hip (g/cm2): 0.768 T Score values are as follows: -----R Neck: -1.9 -----L Neck: -1.9 -----R Total: -1.3 -----L Total: -1.5 Bone mineral density has: Decreased -4.2% since study of: 05/22/2012 IMPRESSION: Osteopenia. NOTE: T-SCORE=SD OF THE YOUNG ADULT MEAN.
== END | disposition home or self-care (01) ==
LOC: RADBDWWP 11:03
PROVIDERS: ATTEND Internal Medicine
DX: M85.88 Other specified disorders of bone density and structure, other site (principal)
CPT/HCPCS: 77080

== ENCOUNTER 2018-12-07 13:28 | Emergency (ER) | payer MEDICARE ==
[2018-12-07 13:33] VITALS: TEMP 98.2
--- NOTE | 2018-12-07 14:26 | ED ---
Extremity Problem HPI - General Chief complaint: Extremity Problem,Nontraumatic Stated complaint: rt calf blood clot Time Seen by Provider: 12/07/18 14:00 Source: patient Mode of arrival: ambulatory Limitations: no limitations - History of Present Illness Initial comments: Patient is a 73-year-old female presenting to emergency Department with complaints of pain and swelling in her right calf today. Patient states she had a small blood clot in her right leg that was diagnosed in May. Patient states her doctor told her to wear compression stockings and if she ever has an increase in pain and swelling to go to the ER. Patient states she woke up this morning with an increase in pain in her right calf and now is radiating up into her right upper leg. Patient denies any fever, chills, chest pain, shortness of breath, cough. Patient is on Plavix. Patient has past medical history of diabetes, DVT, CVA/TIA, hypertension. Patient has no other complaints at this time. Upon arrival to the ER, blood pressure is 169/98, pulse is 106, 97% on room air, 98.2 temp. - Related Data Home Medications Medication Instructions Recorded Confirmed Lisinopril [Zestril] 10 mg PO BID 05/06/17 04/16/18 Vit C/E/Zn/Coppr/Lutein/Zeaxan 1 cap PO BID 05/06/17 04/16/18 [Preservision Areds 2 Softgel] Levofloxacin [Levaquin] 500 mg PO DAILY 04/16/18 04/16/18 Levothyroxine Sodium [Synthroid] 25 mcg PO DAILY 04/16/18 04/16/18 Multivitamins, Thera [Multivitamin 1 tab PO DAILY 04/16/18 04/16/18 (formulary)] glipiZIDE [Glucotrol] 10 mg PO DAILY 04/16/18 04/16/18 metFORMIN HCL 1,000 mg PO BID 04/16/18 04/16/18 Previous Rx's Medication Instructions Recorded Clopidogrel [Plavix] 75 mg PO DAILY #30 tab 04/14/17 Allergies Allergy/AdvReac Type Severity Reaction Status Date / Time Penicillins Allergy Anaphylaxis Verified 12/07/18 13:32 Most DIABETIC medications Allergy Unknown Uncoded 12/07/18 13:32 Review of Systems ROS Statement: Those systems with pertinent positive or pertinent negative responses have been documented in the HPI. ROS Other: All systems not noted in ROS Statement are negative. Past Medical History Past Medical History: CVA/TIA, Diabetes Mellitus, Deep Vein Thrombosis (DVT), Hypertension Additional Past Medical History / Comment(s): TIA, diabetic neuropathy History of Any Multi-Drug Resistant Organisms: None Reported Past Surgical History: Hysterectomy, Tonsillectomy Additional Past Surgical History / Comment(s): mass removed from scalp, vein stripping x2, mastoid tumor removed Past Anesthesia/Blood Transfusion Reactions: No Reported Reaction Past Psychological History: No Psychological Hx Reported Smoking Status: Never smoker Past Alcohol Use History: None Reported Past Drug Use History: None Reported - Past Family History Father Family Medical History: Coronary Artery Disease (CAD), Diabetes Mellitus Additional Family Medical History / Comment(s): Father from combinations of COPD and myocardial infarction. He also had history of diabetes type 2. No history of coronary artery disease. Mother Family Medical History: Cancer Additional Family Medical History / Comment(s): A mother from a cerebral hemorrhage with history of breast cancer. No history of coronary artery disease. Brother(s) Additional Family Medical History / Comment(s): Patient has one brother and one sister with diabetes mellitus type 2. General Exam - General Exam Comments Initial Comments: GENERAL: Well-appearing, well-nourished and in no acute distress. HEAD: Atraumatic, normocephalic. EYES: Pupils equal round and reactive to light, extraocular movements intact, sclera anicteric, conjunctiva are normal. ENT: TMs normal, nares patent, oropharynx clear without exudates. Moist mucous membranes. NECK: Normal range of motion, supple without lymphadenopathy or JVD. LUNGS: Breath sounds clear to auscultation bilaterally and equal. No wheezes rales or rhonchi. HEART: Regular rate and rhythm without murmurs, rubs or gallops. ABDOMEN: Soft, nontender, normoactive bowel sounds. No guarding, no rebound. No masses appreciated. : Deferred EXTREMITIES: Pain with palpation of the right calf, right posterior upper leg. Neurovascular intact. Mild swelling of the right ankle. Range of motion is within normal limits. No clubbing or cyanosis. NEUROLOGICAL: Cranial nerves II through XII grossly intact. Normal speech, normal gait. PSYCH: Normal mood, normal affect. SKIN: Warm, Dry, normal turgor, no rashes or lesions noted. Limitations: no limitations Course Vital Signs 12/07/18 12/07/18 13:28 15:37 Temperature 98.2 F Pulse Rate 106 H 85 Respiratory 20 18 Rate Blood Pressure 169/98 155/80 O2 Sat by Pulse 97 99 Oximetry Medical Decision Making - Medical Decision Making Patient is a 73-year-old female presenting with right lower extremity pain and mild swelling. Patient has history of DVT and is worried she has another one. Patient is on Plavix. Exam shows mild tenderness to the right calf and upper leg. Patient denies any traumas or fever, chills. Vital signs are stable. Ultrasound reveals no acute DVTs of the right lower extremity. Patient will continue with Tylenol as needed for pain and will use elevation of the leg. If symptoms persist, patient will follow up with PCP on Monday. Patient is stable for discharge at this time and she is in agreement with this plan of care. Return parameters were discussed with the patient she verbalized understanding. Case discussed with Dr. Mercedes. Disposition Clinical Impression: Pain in right leg Disposition: HOME SELF-CARE Condition: Stable Instructions (If sedation given, give patient instructions): Leg Pain (ED) Additional Instructions: Please return to the Emergency Department if symptoms worsen or any other concerns. Use ice, Tylenol for pain relief. Also use elevation. Is patient prescribed a controlled substance at d/c from ED?: No Referrals: Oleg Chambers MD [Primary Care Provider] - 1-2 days
--- NOTE | 2018-12-07 15:00 | US ---
EXAMINATION TYPE: US venous doppler duplex LE RT DATE OF EXAM: 12/07/2018 2:51 PM COMPARISON: NONE CLINICAL HISTORY: pain, swelling. SIDE PERFORMED: Right TECHNIQUE: The lower extremity deep venous system is examined utilizing real time linear array sonog ivan with graded compression, doppler sonography and color-flow sonography. VESSELS IMAGED: External Iliac Vein (EIV) Common Femoral Vein Deep Femoral Vein Greater Saphenous Vein * Femoral Vein Popliteal Vein Small Saphenous Vein * Proximal Calf Veins (* superficial vessels) GSV not seen, patient has history of vein stripping. Right Leg: Negative for DVT Grayscale, color doppler, spectral doppler imaging performed of the deep veins of the right lower ext remity. There is normal flow, compressibility, vascular waveforms. IMPRESSION: Prior venous harvesting. No evidence of acute DVT in the right lower extremity.
[2018-12-07 15:39] VITALS: BP 155/80; PULSE 85; RESP 18
== END 2018-12-07 15:37 | disposition home or self-care (01) ==
LOC: EC 13:28
DX: M79.661 Pain in right lower leg (principal); M79.89 Other specified soft tissue disorders; I10 Essential (primary) hypertension; E11.40 Type 2 diabetes mellitus with diabetic neuropathy, unspecified; Z86.73 Personal history of transient ischemic attack (TIA), and cerebral infarction without residual deficits; Z86.718 Personal history of other venous thrombosis and embolism; Z79.890 Hormone replacement therapy; Z79.84 Long term (current) use of oral hypoglycemic drugs; Z79.899 Other long term (current) drug therapy; Z88.0 Allergy status to penicillin; Z88.8 Allergy status to other drugs, medicaments and biological substances
CPT/HCPCS: 76536; 99283

== ENCOUNTER → 2018-12-07 | Outpatient (CLI) | payer MEDICARE ==
--- NOTE | 2018-12-09 20:03 | US ---
EXAMINATION TYPE: US thyroid st tissue head/neck DATE OF EXAM: 12/07/2018 COMPARISON: NONE CLINICAL HISTORY: 73-year-old female E04.9 GOITER. Neck pain TECHNIQUE: Multiple sonographic images of the thyroid gland are obtained. FINDINGS: GLAND SIZE: Right Lobe: 3.0 x 1.3 x 1.3 cm Overall Parenchyma: homogenous Left Lobe: 2.5 x .8 x 1.4 cm Overall Parenchyma: homogeneous Isthmus Thickness: .2 cm NODULES RIGHT: # of nodules measured on right: 0 LEFT: # of nodules measured on left: 0 ISTHMUS: # of nodules measured in the isthmus: 0 Educational Fundraising Director notes: Bilateral neck scanned, no evidence of lymphadenopathy. IMPRESSION: No discrete nodule. Small to normal-sized thyroid gland with measurements as above.
== END | disposition home or self-care (01) ==
LOC: RADUSWWP 15:41
PROVIDERS: ATTEND Internal Medicine
DX: E04.9 Nontoxic goiter, unspecified (principal)
CPT/HCPCS: 76536

== ENCOUNTER → 2019-01-14 | Outpatient (CLI) | payer MEDICARE ==
--- NOTE | 2019-01-15 05:04 | CT ---
EXAMINATION TYPE: CT soft tissue neck w con DATE OF EXAM: 01/14/2019 COMPARISON: 06/11/2014 HISTORY: 73-year-old female swelling to both sides of neck TECHNIQUE: Contiguous axial scanning of the soft tissues of the neck performed with IV Contrast, jaun ent injected with 100 mL of Isovue 300. Coronal/sagittal reconstructions performed. CT DLP: 411.1 mGycm Automated exposure control for dose reduction was used. FINDINGS: Visualized intracranial structures shows a dominant left vertebral artery. Visualized orbits and glob es, paranasal sinuses, left mastoid air cells appear clear. Prior resection changes extending into th e right mastoid air cells. Nasopharynx is clear. Allowing for extensive dental amalgam artifact, no discrete abnormality of the oropharynx. Epiglottis and prevertebral soft tissues are within normal limits. Glottic and subglottic structures as well as the tracheal column and visualized upper lungs appear cl ear. The thyroid gland appears satisfactory. Asymmetrically larger size of the left submandibular gland is unchanged from 2015, likely normal variation. No discrete mass is identified. Prominent 6 mm right submental space lymph node is unchanged from 2015. Additional scattered nonenlar ged lymph nodes are present on both sides of the neck. No cervical lymphadenopathy by CT size criteri a. Parotid glands appear satisfactory. Some degenerative changes at the bilateral sternoclavicular joints. IMPRESSION: NO CERVICAL LYMPHADENOPATHY BY CT SIZE CRITERIA OR SUSPICIOUS NECK MASS IDENTIFIED. ASYMMETRICALLY LA RGER SIZE OF THE LEFT SUBMANDIBULAR GLAND IS UNCHANGED FROM 2015 AND LIKELY REPRESENTS NORMAL VARIATI ON.
== END ==
LOC: RADCTMAIN 16:15
PROVIDERS: ATTEND Internal Medicine
DX: R22.1 Localized swelling, mass and lump, neck (principal); I10 Essential (primary) hypertension
CPT/HCPCS: 82565; 84520; 70491; 36415; Q9967

== ENCOUNTER → 2019-08-20 | Outpatient (CLI) | payer MEDICARE ==
--- NOTE | 2019-08-22 09:26 | MM ---
Reason for exam: screening (asymptomatic). Last mammogram was performed 1 year and 2 months ago. History: Patient is postmenopausal. Family history of breast cancer in mother at age 70. Benign stereotactic core biopsy of the left breast, March 02, 2001. Benign excisional biopsy of the left breast, February 25, 1998. Physical Findings: A clinical breast exam by your physician is recommended on an annual basis and results should be correlated with mammographic findings. MG 3D Screening Mammo W/Cad Bilateral CC and MLO view(s) were taken. Prior study comparison: June 20, 2018, bilateral MG 3d screening mammo w/cad. June 19, 2017, bilateral MG 3d screening mammo w/cad. There are scattered fibroglandular densities. There is no discrete abnormality. No significant changes when compared with prior studies. ASSESSMENT: Negative, BI-RAD 1 RECOMMENDATION: Routine screening mammogram of both breasts in 1 year.
== END | disposition home or self-care (01) ==
LOC: RADMAMWWP 09:05
PROVIDERS: ATTEND Internal Medicine
DX: Z12.31 Encounter for screening mammogram for malignant neoplasm of breast (principal)
CPT/HCPCS: 77063; 77067

== ENCOUNTER → 2019-09-11 | Outpatient (CLI) | payer MEDICARE | END | disposition home or self-care (01) | LOC: LABWHC1 11:13 | PROVIDERS: ATTEND Internal Medicine | DX: Z11.59 Encounter for screening for other viral diseases (principal) ==

== ENCOUNTER → 2020-09-18 | Outpatient (CLI) | payer MEDICARE ==
--- NOTE | 2020-09-22 10:37 | MM ---
Reason for exam: screening (asymptomatic). Last mammogram was performed 1 year and 1 month ago. History: Patient is postmenopausal. Family history of breast cancer in mother at age 70. Benign stereotactic core biopsy of the left breast, March 02, 2001. Benign excisional biopsy of the left breast, February 25, 1998. Physical Findings: A clinical breast exam by your physician is recommended on an annual basis and results should be correlated with mammographic findings. MG 3D Screening Mammo W/Cad Bilateral CC and MLO view(s) were taken. Prior study comparison: August 20, 2019, bilateral MG 3d screening mammo w/cad. June 20, 2018, bilateral MG 3d screening mammo w/cad. There are scattered fibroglandular densities. New nodularity upper outer quadrant left breast. ASSESSMENT: Incomplete: need additional imaging evaluation, BI-RAD 0 RECOMMENDATION: Special view mammogram of the left breast. (3D) Ultrasound of the left breast. (upper outer quadrant) [facility] will attempt to contact patient to return for supplemental views and ultrasound.
== END | disposition home or self-care (01) ==
LOC: RADMAMWWP 08:58
PROVIDERS: ATTEND Internal Medicine
DX: Z12.31 Encounter for screening mammogram for malignant neoplasm of breast (principal); Z78.0 Asymptomatic menopausal state; Z80.3 Family history of malignant neoplasm of breast
CPT/HCPCS: 77063; 77067

== ENCOUNTER → 2020-10-08 | Outpatient (CLI) | payer MEDICARE ==
--- NOTE | 2020-10-08 14:01 | USB ---
EXAMINATION TYPE: US breast workup limited LT DATE OF EXAM: 10/08/2020 COMPARISON: Mammogram 09/18/2020 CLINICAL HISTORY: R92.8 abn mammogram. Findings: The left breast was scanned with ultrasound from 12:00 to 3:00 and in the retroareolar region and axi lla. In the left breast at 2:00, there is a heterogeneous lesion with posterior enhancement which is predo minantly anechoic and measures up to 0.6 x 0.3 x 0.7 cm, most consistent with a cluster of cysts. Thi s lesion corresponds well in size, location and morphology to the asymmetry seen on mammogram and is probably benign. IMPRESSION: The likely cluster of cysts in the left breast is probably benign and follow-up ultrasound is recomme nded in 6 months. BI-RADS 3, probably benign.
== END | disposition home or self-care (01) ==
LOC: RADMAMWWP 13:12
PROVIDERS: ATTEND Internal Medicine
DX: N64.89 Other specified disorders of breast (principal)

== ENCOUNTER 2021-02-24 07:22 | Day surgery (SDC) | payer MEDICARE ==
[2021-02-17 14:51] VITALS: BMI 27.3
[~2021-02-24 07:22] MED LIST: LACTATED RINGERS 1,000 ML IV SCH
[2021-02-24 07:51] VITALS: TEMP 97.5
[2021-02-24] MEDS ORDERED: PROPOFOL 10 MG/ML 20 ML VIAL IV ONE (08:04)
[2021-02-24] MEDS ORDERED: LIDOCAINE 1% INJ 10MG/ML (20 ML MDV) ONE (08:04)
[2021-02-24 08:20] LABS: Glucose,Whole Blood 197 mg/dL (75-99)
--- NOTE | 2021-02-24 08:21 | P.PCN ---
Date of Procedure: 02/24/21 Procedure(s) Performed: BRIEF HISTORY: Patient is a 75-year-old pleasant female scheduled for an elective colonoscopy as a part of evaluation of positive cologuard. PROCEDURE PERFORMED: Colonoscopy with snare polypectomy and Endo Clip placement. PREOPERATIVE DIAGNOSIS: Positive cologuard. IV sedation per Anesthesia. PROCEDURE: After informed consent was obtained, the patient, was brought into the endoscopy unit. IV sedation was administered by Anesthesia under continuous monitoring. Digital rectal examination was normal. Initially the Olympus CF-160 flexible video colonoscope was then inserted in the rectum, gradually advanced into the cecum without any difficulty. Careful examination was performed as the scope was gradually being withdrawn. Ileocecal valve and the appendiceal orifice were visualized and appeared normal. Prep was excellent. In the base of cecum there was a 2.5 cm broad-based polyp that was removed by piecemeal snare polypectomy followed by Endo Clip placement. In the hepatic flexure there was a 1.5 cm polyp that was removed by snare polypectomy. In the rectum there was a 5 minute a polyp that was removed by snare polypectomy. Rest of ascending colon, transverse colon, descending colon, sigmoid colon, and rectum appeared normal. Retroflexion was performed in the rectum and no lesions were seen. The patient tolerated the procedure well. IMPRESSION: 2.5 cm broad-based cecal polyp status post piecemeal snare polypectomy followed by Endo Clip placement 1.5 cm hepatic flexure polyp status post polypectomy 5 mm rectal polyp status post polypectomy RECOMMENDATIONS: Findings of this examination were discussed with the patient as well as her family. She was advised to follow with the biopsy results. If the biopsy reveals adenoma she can have a repeat colonoscopy in 6 months to one year
[2021-02-24 08:27] VITALS: PULSE 77; RESP 16
[2021-02-24 08:46] VITALS: BP 145/80
== END 2021-02-24 09:18 | disposition home or self-care (01) ==
LOC: ORWHC2ENDO 07:22
PROVIDERS: ATTEND Internal Medicine Gastroenterology
DX: D12.3 Benign neoplasm of transverse colon (principal); K62.1 Rectal polyp; I10 Essential (primary) hypertension; E78.5 Hyperlipidemia, unspecified; E11.40 Type 2 diabetes mellitus with diabetic neuropathy, unspecified; E07.9 Disorder of thyroid, unspecified; Z86.73 Personal history of transient ischemic attack (TIA), and cerebral infarction without residual deficits; Z88.0 Allergy status to penicillin; Z88.8 Allergy status to other drugs, medicaments and biological substances; Z79.4 Long term (current) use of insulin; Z79.899 Other long term (current) drug therapy; Z79.02 Long term (current) use of antithrombotics/antiplatelets
CPT/HCPCS: 88305; 45385; J2001; J2704; 43255

== ENCOUNTER → 2021-04-16 | Outpatient (CLI) | payer MEDICARE ==
--- NOTE | 2021-04-16 13:51 | USB ---
Reason for exam: additional evaluation requested from abnormal screening. History: Patient is postmenopausal. Family history of breast cancer in mother at age 70. Benign stereotactic core biopsy of the left breast, March 02, 2001. Benign excisional biopsy of the left breast, February 25, 1998. Physical Findings: Patient refused breast exam. US Breast Workup Limited LT Left limited breast ultrasound including focal area of concern, retroareolar and axilla demonstrates a 0.9 x 0.7 x 0.4cm irregular lesion at 2 o'clock, questionable vascularity with shadow and a 1.2 x 0.9 x 0.7cm lymph nodes at the axilla. These results were verbally communicated with the patient and result sheet given to the patient on 04/16/21. ASSESSMENT: Suspicious, BI-RAD 4 RECOMMENDATION: Ultrasound core biopsy of the left breast. Called Dr. Chambers's office with mammographic findings and has scheduled an appointment for the patient for 05/14/21 at 2:[address] Tavera. Biopsy scheduled for 05/19/21 at 7:00. PRELIMINARY REPORT CALLED AND FAXED TO DR. TAVERA ON 04/16/21.
== END | disposition home or self-care (01) ==
LOC: RADUSWWP 09:25
PROVIDERS: ATTEND Internal Medicine
DX: R92.8 Other abnormal and inconclusive findings on diagnostic imaging of breast (principal)

== ENCOUNTER → 2021-05-14 | Outpatient (CLI) | payer MEDICARE ==
[2021-05-14 14:05] VITALS: BP 189/90; PULSE 103; RESP 18; TEMP 97.7
--- NOTE | 2021-05-14 14:34 | P.GSHP ---
History of Present Illness H&P Date: 05/14/21 Chief Complaint: abnormal left breast ultrasound Poonam is a 76 year old white female seen in consultation for DR. Llanos regarding an abnormal ultrasound of the left breast on 04-16-21. She had a bilateral mammogram in . This showed a new nodular upper outer quadrant left breast area. Special view mammogram of the left breast was recommended, however a left breast ultrasound was performed on . This revealed a 0.9 x 0.4 cm irregular lesion at 2:00. Additionally a 1.2 x 0.7 cm lymph node was noted. The ultrasound was felt to be abnormal and an ultrasound core biopsy of the left breast was recommended. In 1997 the patient underwent a left breast stertactic core biopsy which was benign. She has not had any other breast surgery or biopsies done. The patient does not feel any lumps masses or nodules of concern in either breast. The patient is not complaining of any pain or nipple discharge. A complaining of any infection or trauma to her breast. 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 skin lesions Medical History: diabetic 10 years insulin DVT in past TIA 4 years ago Social History: smoke: none alcohol: none drugs: none - Constitutional Constitutional: Denies chills, Denies fever - EENT Eyes: denies blurred vision, denies pain Ears: bilateral: decreased hearing (haring aids), deny: tinnitus Ears, nose, mouth and throat: Denies headache, Denies sore throat - Breasts Breasts: bilateral: as per HPI - Cardiovascular Cardiovascular: Denies chest pain, Denies shortness of breath - Respiratory Respiratory: Denies cough, Denies 7 - Gastrointestinal Gastrointestinal: Denies abdominal pain, Denies diarrhea, Denies nausea, Denies vomiting - Genitourinary (Female) Genitourinary: Denies dysuria, Denies hematuria - Menstruation Menstruation: Reports post hysterectomy - Musculoskeletal Musculoskeletal: Denies myalgias - Integumentary Integumentary: Denies pruritus, Denies rash - Neurological Neurological: Denies numbness, Denies weakness - Psychiatric Psychiatric: Denies anxiety, Denies depression - Endocrine Comment: diet pills Endocrine: Denies fatigue, Denies weight change - Hematologic/Lymphatic Comment: none - Allergic/Immunologic Allergic/Immunologic: Reports as per HPI Past Medical History Past Medical History: CVA/TIA, Diabetes Mellitus, Deep Vein Thrombosis (DVT), Hyperlipidemia, Hypertension Additional Past Medical History / Comment(s): TIA, diabetic neuropathy , + COLOGARD History of Any Multi-Drug Resistant Organisms: None Reported Past Surgical History: Hysterectomy, Tonsillectomy Additional Past Surgical History / Comment(s): mass removed from scalp, vein stripping x2, mastoid tumor removed, SX ON VOICE BOX R/T ET TUBE Past Anesthesia/Blood Transfusion Reactions: No Reported Reaction Past Psychological History: No Psychological Hx Reported Smoking Status: Never smoker Past Alcohol Use History: None Reported Additional Past Alcohol Use History / Comment(s): Patient is a lifelong nonsmoker. She denies any marijuana, street drug use. She denies any alcohol use. She is and lives at home with her . There are 2 dogs in the home. She denies any recent travel but camps in the summertime locally. She has worked for [employer] and then for [employer]. Past Drug Use History: None Reported - Past Family History Father Family Medical History: Coronary Artery Disease (CAD), Diabetes Mellitus Additional Family Medical History / Comment(s): Father from combinations of COPD and myocardial infarction. He also had history of diabetes type 2. No history of coronary artery disease. Mother Family Medical History: Cancer Additional Family Medical History / Comment(s): A mother from a cerebral hemorrhage with history of breast cancer. No history of coronary artery disease. Brother(s) Additional Family Medical History / Comment(s): Patient has one brother and one sister with diabetes mellitus type 2. Medications and Allergies Home Medications Medication Instructions Recorded Confirmed Type Clopidogrel [Plavix] 75 mg PO DAILY #30 tab 04/14/17 05/14/21 Rx Vit C/E/Zn/Coppr/Lutein/Zeaxan 1 cap PO BID 05/06/17 05/14/21 History [Preservision Areds 2 Softgel] Levothyroxine Sodium [Synthroid] 25 mcg PO DAILY 04/16/18 05/14/21 History Multivitamins, Thera [Multivitamin 1 tab PO DAILY 04/16/18 05/14/21 History (formulary)] Atorvastatin [Lipitor] 10 mg PO DAILY 02/17/21 05/14/21 History Gemfibrozil [Lopid] 600 mg PO AC-BID 02/17/21 05/14/21 History Insulin NPH Hum/Reg Insulin Hm 60 units SQ BID-W/MEALS 02/17/21 05/14/21 History [Novolin 70-30 Flexpen] Metoprolol Succinate [Toprol XL] 50 mg PO BID 02/17/21 05/14/21 History Phentermine HCl 37.5 mg PO AC-BRKFST 02/17/21 05/14/21 History Ubidecarenone [Co Q-10] 100 mg PO DAILY 02/17/21 05/14/21 History amLODIPine [Norvasc] 5 mg PO DAILY 02/17/21 05/14/21 History lisinopriL 40 mg PO DAILY 02/17/21 05/14/21 History Cholecalciferol (Vitamin D3) 125 mcg PO DAILY 05/07/21 05/14/21 History [Vitamin D3 (125 MCG = 5,000 IU)] Allergies Allergy/AdvReac Type Severity Reaction Status Date / Time Penicillins Allergy Anaphylaxis Verified 05/14/21 13:58 Most DIABETIC medications Allergy N/V Uncoded 05/14/21 13:58 Surgical - Exam Vital Signs Temp Pulse Resp BP Pulse Ox 97.7 F 103 H 18 189/90 99 05/14/21 14:02 05/14/21 14:02 05/14/21 14:02 05/14/21 14:02 05/14/21 14:02 BMI 28.1 - General moderate distress - Eyes normal ocular movement - ENT decreased hearing - Neck trachea midline - Respiratory normal respiratory effort - Cardiovascular Rhythm: regular Heart Sounds: normal: S1, S2 - Abdomen Abdomen: soft, non tender, no guarding, no rigid, no rebound - Integumentary normal turgor - Neurologic no disoriented, no combative - Musculoskeletal normal gait - Psychiatric oriented to time, oriented to person, oriented to place, speech is normal, memory intact Breast Exam: BRA: 40C inspection: bilateral grade 3 ptosis, scar right breast with keloid palpation: right breast: multipositional exam no dominate masses or nodules of concern right axilla: no adenopathy of concern left breast:multipositional exam no dominate masses or nodules of concern left axilla: no adenopathy of concern Results Mammogram and ultrasound results reviewed, lesion of concern noted in left breast Assessment and Plan Assessment: Impression: Abnormal left breast ultrasound Fibrocystic breast changes Diabetic Family history of cancer Difficulty with intubation in the past resulting in vocal cord surgery Plan: Ultrasound-guided left breast core biopsy Follow-up after ultrasound-guided core biopsy Risks of the procedure include but are not limited to bleeding, infection, reaction to the anesthetic. Additionally if the findings were felt to be discordant and open biopsy may be recommended. CC: Dr. Llanos
== END ==
LOC: WWCWWP 13:48
PROVIDERS: ATTEND Surgery
DX: R92.8 Other abnormal and inconclusive findings on diagnostic imaging of breast (principal); N60.19 Diffuse cystic mastopathy of unspecified breast; Z80.3 Family history of malignant neoplasm of breast; Z98.890 Other specified postprocedural states; Z86.718 Personal history of other venous thrombosis and embolism; Z86.73 Personal history of transient ischemic attack (TIA), and cerebral infarction without residual deficits; Z79.4 Long term (current) use of insulin; E78.5 Hyperlipidemia, unspecified; I10 Essential (primary) hypertension; E11.40 Type 2 diabetes mellitus with diabetic neuropathy, unspecified; Z88.0 Allergy status to penicillin; Z88.8 Allergy status to other drugs, medicaments and biological substances

== ENCOUNTER → 2021-05-19 | Day surgery (SDC) | payer MEDICARE ==
[2021-05-19 07:22] VITALS: RESP 16
[2021-05-19 08:45] VITALS: BP 121/74; PULSE 78; TEMP 98.6
--- NOTE | 2021-05-19 18:36 | MM ---
EXAMINATION TYPE: MG diagnostic mammo LT wo CAD DATE OF EXAM: 05/19/2021 CLINICAL HISTORY: R92.8 abn mamm. TECHNIQUE: Ultrasound guided vaccuum assisted core biopsy of left breast. COMPARISON: 04/16/2021 FINDINGS: The ultrasound guided core biopsy procedure was explained to the patient. The risks, benef its, alternatives were discussed. An informed consent was then obtained. Timeout was performed. The patient was placed in supine positioning for imaging and for the procedure. The overlying skin w as prepped with betadine and sterilely draped in usual sterile fashion. Lidocaine 1% was used as ane sthetic into the skin and deeper breast tissue up to area of concern in the breast. A small skin ann k was made with surgical scalpel. Under ultrasound guidance, a 12-gauge vacuum assisted biopsy device was used to obtain 4 core samples . A biopsy clip was left in lesion. Wing clip was utilized. Good hemostasis was obtained with direct pressure. Discharge instructions were discussed with the pa neto. The patient will follow up with the referring physician for results. Postprocedure mammogram: The patient was transferred to mammography for physician ordered post proced ure mammogram for clip placement verification. The clip is in the expected region of the biopsy. The patient tolerated the procedure well without any immediate complication. The patient was dischar ge to home in stable condition. IMPRESSION: 1. Successful ultrasound guided biopsy left breast. Recommendations: 1. Recommendations are pending pathology results.
== END | disposition home or self-care (01) ==
LOC: RADUSWWP 06:57
PROVIDERS: ATTEND Surgery
DX: N60.82 Other benign mammary dysplasias of left breast (principal); N62 Hypertrophy of breast
CPT/HCPCS: 88305; 77065; 19083; A4648; J2001

== ENCOUNTER → 2021-05-27 | Outpatient (CLI) | payer MEDICARE ==
[2021-05-27 13:13] VITALS: BP 136/77; PULSE 85; RESP 17; TEMP 98.1
--- NOTE | 2021-05-27 13:33 | P.PN ---
Subjective Progress Note Date: 05/27/21 Principal diagnosis: fibrocystic breast changes Poonam is a 76 year old female status post a left breast core biopsy on 05-19-21. Pathology was benign concordant. The patient tolerated the procedure in stable condition. The case was reviewed in detail with Dr. Garza from radiology. Objective - Vital Signs Vital signs: Vital Signs Temp 98.1 F 05/27/21 13:10 Pulse 85 05/27/21 13:10 Resp 17 05/27/21 13:10 BP 136/77 05/27/21 13:10 Pulse Ox 97 05/27/21 13:10 Intake & Output 05/26/21 05/27/21 05/27/21 18:59 06:59 18:59 Weight 86.183 kg - Exam BMI 28.1 - Constitutional General appearance: Present: cooperative - EENT Eyes: Present: EOMI ENT: Present: hearing grossly normal - Neck Neck: Present: normal ROM - Integumentary Integumentary Comment(s): mile ecchymosis at biopsy site No evidence of hematoma or infection at biopsy site Integumentary: Present: normal turgor - Musculoskeletal Musculoskeletal: Present: gait normal - Psychiatric Psychiatric: Present: A&O x's 3, appropriate affect, intact judgment & insight Assessment and Plan Assessment: Impression: Fibrocystic breast changes left breast on recent core biopsy Plan: Bilateral mammogram in 6 months with a left breast ultrasound as well Patient to follow up at that time Cc: Dr. Chambers
== END ==
LOC: WWCWWP 12:49
PROVIDERS: ATTEND Surgery
DX: N60.12 Diffuse cystic mastopathy of left breast (principal); Z88.0 Allergy status to penicillin; Z88.8 Allergy status to other drugs, medicaments and biological substances

== ENCOUNTER → 2022-04-21 | Outpatient (CLI) | payer MEDICARE ==
--- NOTE | 2022-04-21 15:24 | MM ---
Reason for Exam: Hx of benign breast biopsy. Last mammogram was performed 1 year(s) and 7 month(s) ago. Patient History: Menarche at age 13. First Full-Term at age 23. Left ovary removed at age 50. Right ovary removed at age 50. Hysterectomy at age 50. Postmenopausal. 05/19/2021, Benign Core Biopsy on the left side. 02/25/1998, Benign Excisional Biopsy on the left side. 03/02/2001, Benign Stereotactic Core Biopsy on the left side. Mother had breast cancer, age 70. Risk Values: Linda 5 year model risk: 5.0%. NCI Lifetime model risk: 9.4%. Prior Study Comparison: 05/05/2014 Bilateral Screening Mammogram, [facility]. 06/20/2018 Bilateral Screening Mammogram, [facility]. 09/18/2020 Bilateral Screening Mammogram, [facility]. 05/19/2021 Left Diagnostic Mammogram, [facility]. Tissue Density: There are scattered fibroglandular densities. Findings: Analyzed By CAD. Microclip at the site of previous upper outer quadrant nodule in the left breast. Additional area of nodular asymmetric density lateral left CC view at middle depth remains unchanged. No significant change from prior exams. Overall Assessment: Benign, BI-RAD 2 Management: Screening Mammogram of both breasts in 1 year. 1. Patient should continue monthly self breast exams. 2. A clinical breast exam by your physician is recommended on an annual basis. 3. This exam should not preclude additional follow-up of suspicious palpable abnormalities. Results were given to the patient verbally at the time of exam. Electronically signed and approved by: Aby Rocha M.D. Radiologist
== END | disposition home or self-care (01) ==
LOC: RADMAMWWP 08:00
PROVIDERS: ATTEND Surgery
DX: R92.8 Other abnormal and inconclusive findings on diagnostic imaging of breast (principal); Z78.0 Asymptomatic menopausal state; Z80.3 Family history of malignant neoplasm of breast
CPT/HCPCS: 77066; G0279; 77062

== ENCOUNTER → 2023-04-24 | Outpatient (CLI) | payer MEDICARE ==
--- NOTE | 2023-04-25 08:16 | MM ---
Reason for Exam: Screening (asymptomatic). Last screening mammogram was performed 12 month(s) ago. Patient History: Menarche at age 13. First Full-Term at age 23. Left ovary removed at age 50. Right ovary removed at age 50. Hysterectomy at age 50. Postmenopausal. 05/19/2021, Benign Core Biopsy on the left side. 02/25/1998, Benign Excisional Biopsy on the left side. 03/02/2001, Benign Stereotactic Core Biopsy on the left side. Mother had breast cancer, age 70. Risk Values: Linda 5 year model risk: 4.9%. NCI Lifetime model risk: 8.7%. Prior Study Comparison: 06/19/2017 Bilateral Screening Mammogram, [facility]. 06/20/2018 Bilateral Screening Mammogram, [facility]. 08/20/2019 Bilateral Screening Mammogram, [facility]. 09/18/2020 Bilateral Screening Mammogram, [facility]. 05/19/2021 Left Diagnostic Mammogram, [facility]. 04/21/2022 Bilateral MG 3D diag mammo w/cad [facility], [facility]. Tissue Density: There are scattered fibroglandular densities. Findings: Analyzed By CAD. There is no suspicious group of microcalcifications or new suspicious mass in either breast. Overall Assessment: Negative, BI-RAD 1 Management: Screening Mammogram of both breasts in 1 year. . Patient should continue monthly self-breast exams. A clinical breast exam by your physician is recommended on an annual basis. This exam should not preclude additional follow-up of suspicious palpable abnormalities. Note on Linda scores and lifetime risk: 1. A Linda score greater than 3% is considered moderate risk. If this is the case, consider specialist referral to assess eligibility for a risk reducing agent. 2. If overall lifetime risk for the development of breast cancer is 20% or higher, the patient may qualify for future screening with alternating mammogram and breast MRI. Electronically signed and approved by: Osvaldo Feng M.D. Radiologis
== END | disposition home or self-care (01) ==
LOC: RADMAMWWP 11:00
PROVIDERS: ATTEND Family Medicine
DX: Z12.31 Encounter for screening mammogram for malignant neoplasm of breast (principal); Z78.0 Asymptomatic menopausal state; Z80.3 Family history of malignant neoplasm of breast
CPT/HCPCS: 77063; 77067